=== PATIENT | male | born 1975 | race Caucasian/White ===

== ENCOUNTER 2025-10-01 15:33 | Outpatient (CLI) | payer MEDICARE, MEDICAID, SELFPAY ==
[2025-10-01 16:11] LABS: Hematocrit 29.6 % (42.0-52.0); Hemoglobin 9.5 g/dL (14.1-18.0); Immature Granulocytes % 0.5 %; Mean Corpuscular HGB Conc 32.1 g/dL (31.8-35.4); Mean Corpuscular Hemoglobin 31.7 pg (27.0-31.2); Mean Corpuscular Volume 98.7 fl (80-94); Nucleated Red Blood Cells % 0 %; Platelet Count 229 K/mm3 (142-424); Red Blood Count 3.00 M/mm3 (4.60-6.20); Red Cell Distribution Width-SD 47.3 fL; White Blood Count 6.3 K/mm3 (4.8-10.8)
[2025-10-01 16:44] LABS: Alanine Aminotransferase 12 U/L (12-78); Albumin Level 2.6 g/dl (3.5-5.0); Anion Gap 7.7 mEq/L (5-15); Aspartate Amino Transferase 23 U/L (17-59); Bilirubin,Total 0.5 mg/dl (0.2-1.3); Blood Urea Nitrogen 18 mg/dl (9-20); Calcium 8.1 mg/dl (8.4-10.2); Carbon Dioxide 30 mmol/L (22.0-30.0); Chloride 107 mmol/L (98-107); Creatinine,Serum 0.60 mg/dl (0.66-1.25); Estimated Glomerular Filt Rate 141 ml/min (>60); GFR (African American) 171 ML/MIN (>60); Glucose 119 mg/dl (74-100); Potassium 3.7 mmoL/L (3.5-5.1); Sodium 141 mmol/L (136-145); Total Protein,Serum 5.3 g/dl (6.3-8.2)
[2025-10-01 16:45] LABS: Albumin/Globulin Ratio 1.0 (1.1-1.8); Alkaline Phosphatase 87 U/L (38-126); Carbamazepine (Tegretol) 11.1 ug/ml (4.0-12.0); Globulin 2.7 g/dL (1.3-3.2)
[2025-10-01 16:50] LABS: NT Pro Brain Natriuretic Pep. 1740 pg/mL (0-125)
[2025-10-01 17:12] LABS: Thyroid Stimulating Hormone 2.26 uIU/mL (0.465-4.68)
[2025-10-01 20:01] LABS: Valproic Acid, (Depakene) 48.9 ug/ml (50-100)
== END 2025-10-01 23:59 | disposition home or self-care (01) ==
PROVIDERS: PCP Nurse Practitioner Family; Visit Provider Nurse Practitioner Family
DX: G40.301 Generalized idiopathic epilepsy and epileptic syndromes, not intractable, with status epilepticus (principal); Q85.1 Tuberous sclerosis; R60.1 Generalized edema
CPT/HCPCS: 80053; 80156; 80164; 83880; 84443; 85025

== ENCOUNTER 2025-10-04 21:06 | Observation (INO) | payer MEDICARE, MEDICAID, SELFPAY ==
[2025-10-04 21:05] VITALS: BP 120/77; PULSE 104; RESP 18; TEMP 38.2; O2SAT 98; BMI 19.8
--- NOTE | 2025-10-04 21:07 | XR_ITS ---
PROCEDURE INFORMATION: Exam: XR Chest Exam date and time: 10/04/2025 9:25 PM Age: 50 years old Clinical indication: Other: Hypotensive TECHNIQUE: Imaging protocol: Radiologic exam of the chest. Views: 1 view. COMPARISON: No relevant prior studies available. FINDINGS: Lungs: Unremarkable. No consolidation. Pleural spaces: Unremarkable. No pleural effusion. No pneumothorax. Heart/Mediastinum: Unremarkable. No cardiomegaly. Bones/joints: Unremarkable. IMPRESSION: No acute findings.
[2025-10-04 21:17] LABS: Hematocrit 23.2 % (42.0-52.0); Hemoglobin 7.8 g/dL (14.1-18.0); Immature Granulocytes % 0.3 %; Mean Corpuscular HGB Conc 33.6 g/dL (31.8-35.4); Mean Corpuscular Hemoglobin 32.4 pg (27.0-31.2); Mean Corpuscular Volume 96.3 fl (80-94); Nucleated Red Blood Cells % 0 %; Platelet Count 169 K/mm3 (142-424); Red Blood Count 2.41 M/mm3 (4.60-6.20); Red Cell Distribution Width-SD 46.4 fL; White Blood Count 3.5 K/mm3 (4.8-10.8)
[2025-10-04 21:25] LABS: Activated Partial Thrombo Time 31.1 seconds (22.8-30.6); INR 1.03 (0.9-1.1); Prothrombin Time 11.4 seconds (10.1-12.5)
--- NOTE | 2025-10-04 21:27 | PC.NURSE ---
patients brief changed at this time.
[2025-10-04 21:28] LABS: Alanine Aminotransferase 10 U/L (12-78); Albumin Level 2.4 g/dl (3.5-5.0); Albumin/Globulin Ratio 0.9 (1.1-1.8); Alkaline Phosphatase 96 U/L (38-126); Anion Gap 4.8 mEq/L (5-15); Aspartate Amino Transferase 21 U/L (17-59); Bilirubin,Total 0.4 mg/dl (0.2-1.3); Blood Urea Nitrogen 23 mg/dl (9-20); Calcium 7.7 mg/dl (8.4-10.2); Carbon Dioxide 31 mmol/L (22.0-30.0); Chloride 104 mmol/L (98-107); Creatinine Clearance Estimated 128 mL/min (50-200); Creatinine,Serum 0.60 mg/dl (0.66-1.25); Estimated Glomerular Filt Rate 141 ml/min (>60); GFR (African American) 171 ML/MIN (>60); Globulin 2.7 g/dL (1.3-3.2); Glucose 84 mg/dl (74-100); Potassium 3.8 mmoL/L (3.5-5.1); Sodium 136 mmol/L (136-145); Total Protein,Serum 5.1 g/dl (6.3-8.2)
[2025-10-04] MEDS: LACTATED RINGERS 1000ML 1,000 ML 999 ML IV (21:31)
[2025-10-04 21:34] LABS: Microscopic, Urine URINE MICROSCOPIC (MICROSCOPIC)
[2025-10-04 21:34] LABS: Creatine Kinase < 20 U/L (55-170)
[2025-10-04 21:38] LABS: Bilirubin,Urine Negative (Negative); Color,Urine YELLOW (Yellow); Glucose,Urine (UA) Negative (Negative); Ketones,Urine Negative (Negative); Leukocyte Esterase,Urine TRACE (Negative); PH,Urine 6.0 (5.0-8.5); Protein,Urine Negative (Negative); Specific Gravity, Urine 1.015 (1.005-1.030); Urobilinogen,Urine 0.2 EU/dl (0.2)
[2025-10-04 21:42] LABS: Coronavirus 19, PCR Not Detected (NotDetected); Influenza A, PCR Not Detected (NotDetected); Influenza B, PCR Not Detected (NotDetected)
[2025-10-04 21:54] LABS: Bacteria,Urine 1+ /lpf; Mucus,Urine 3+ /lpf; WBC,Urine 20-50 #/hpf (0-3)
--- NOTE | 2025-10-04 22:03 | ED_ITS ---
Discharge Plan Disposition Patient Disposition: Admitted Condition: Good Clinical Impressions Clinical Impression: Sepsis Discharge ED Provider: Vanessa Hernandez General Adult HPI General Chief complaint: Fever Stated complaint: hypotension fever Time Seen by Provider: 10/04/25 21:07 Mode of Arrival: EMS Source of Information: Patient and EMS Description of Symptoms (Recalled from ER Triage Doc. by RN): saba brought in by EMS from [facility] for abnormal vitals . patient noted to be tachycardic, hypotensive, adn febrile at 101.3 . report from care home revealed patient was swollen, had been on keflex for 3 days for cellulitis of right arm and supposed to start levaquin for pneumonia but hasnt yet . patinet is known to be nonverbal at [facility]. has a history of tubular sclerosis and epilepsy. History of Present Illness HPI narrative: Patient is a 50-year-old gentleman who has a history of tuberosclerosis, is nonverbal at baseline who came here to the emergency department with concerns for abnormal vital signs from his nursing facility. Patient was found to be tachycardic hypotensive and febrile and patient was sent here to be further evaluated. Of note, patient typically lives with his father but father recently fell and broke his hip and patient has since been in nursing facility. Patient has been on Keflex for cellulitis of the right upper extremity. Per report, patient was found to have a pneumonia and was post be started on Levaquin today but did not take any of his antibiotics. Patient does have a history of epilepsy with his known tuberosclerosis. Other history was unable to be obtained as patient is nonverbal. Related Data Allergies Allergy/AdvReac Type Severity Reaction Status Date / Time No Known Allergies Allergy Verified 10/04/25 21:26 [facility] Disclaimer: The information contained in this section may have been updated after the patient was seen, as this information can be updated by other users. Social History Smoking Status: Never smoker alcohol intake: never current occupational status: other Travel in the last 8 weeks?: None ROS Obtained: Yes All systems reviewed & no additional complaints except as documented and Yes Systems reviewed as appropriate & no additional complaints except as documented Physical Exam General General appearance: alert and in no apparent distress Head Head exam: atraumatic, normocephalic and normal inspection Eye Eye exam: Present normal appearance, PERRL and EOMI; Absent scleral icterus ENT ENT exam: Present normal exam and normal external ear exam Neck Neck exam: Present normal inspection and full ROM Chest Chest inspection: Present normal inspection and symmetric chest wall rise Respiratory Respiratory exam: Present normal lung sounds bilaterally; Absent respiratory distress or wheezes Cardiovascular Cardiovascular exam: Present regular rate, normal rhythm and normal heart sounds Abdominal Exam Abdominal exam: Present soft and distention; Absent tenderness, guarding or rebound Extremities Exam Extremities exam: Present normal inspection and full ROM Back Exam Back exam: Present normal inspection and full ROM Neurological Exam Neurological exam: Present alert and oriented X3 Psychiatric Psychiatric exam: Present normal affect and normal mood Skin Skin exam: Present warm, dry and other (dependent edema of the bilateral lower extremities, superficial abrasions and scratches to the RUE) Medical Decision Making Medical Records Medical records reviewed: Yes I reviewed the patient's medical records. Screening: Per USPSTF and CDC recommendations, given the prevalence of disease in our region, it is our hospital?s policy to screen for HIV and viral Hepatitis for all patients aged 18 and over and those with ongoing risk factors. Madi Inquiry Pt receiving controlled substance: No Vital Signs: 10/04/25 21:05 10/04/25 21:13 10/04/25 23:28 Temperature 100.7 F H 98.5 F Temperature Source Oral Oral Pulse Rate 82 Pulse Rate [Right Radial] 104 H Respiratory Rate 18 20 Blood Pressure 175/72 H Blood Pressure [Right Arm] 120/77 Blood Pressure Mean [Right Arm] 91 Blood Pressure Source [Right Arm] Automatic Cuff Blood Pressure Position [Right Arm] Sitting 02 Sat by Pulse Oximetry 98 Oxygen Delivery Method Room Air Room Air Lab Data Lab results reviewed: Yes I reviewed the patient's lab results. Lab Results 10/04/25 20:48: WBC 3.5 L, RBC 2.41 L, Hgb 7.8 L, Hct 23.2 L, MCV 96.3 H, MCH 32.4 H, MCHC 33.6, RDW 13.2, Plt Count 169 D, MPV 9.8, Neut % (Auto) 51.4, Lymph % (Auto) 36.7, Sullivan % (Auto) 9.9 H, Eos % (Auto) 1.1, Baso % (Auto) 0.6, Neut # (Auto) 1.8, Lymph # (Auto) 1.3, Sullivan # (Auto) 0.4, Eos # (Auto) 0.0, Baso # (Auto) 0.0, PT 11.4, INR 1.03, APTT 31.1 H, Sodium 136, Potassium 3.8, Chloride 104, Carbon Dioxide 31 H, Anion Gap 4.8 L, BUN 23 H, Creatinine 0.60 L, Estimated Creat Clear 128, Estimated GFR 141, Est GFR ( Amer) 171, Glucose 84, Lactate 1.2, Calcium 7.7 L, Total Bilirubin 0.4, AST 21, ALT 10 L, Alkaline Phosphatase 96, Total Creatine Kinase < 20 L, Total Protein 5.1 L, A lbumin 2.4 L, Globulin 2.7, Albumin/Globulin Ratio 0.9 L 10/04/25 21:28: Urine Color Yellow, Urine Appearance Clear, Urine pH 6.0, Ur Specific [place] 1.015, Urine Protein Negative, Urine Glucose (UA) Negative, Urine Ketones Negative, Urine Blood Negative, Urine Nitrate Negative, Urine Bilirubin Negative, Urine Urobilinogen 0.2, Ur Leukocyte Esterase Trace, Urine RBC 5-10, Urine WBC 20-50, Ur Squamous Epith Cells 10-20, Urine Bacteria 1+, Urine Mucus 3+ 10/04/25 21:36: SARS-CoV-2 (PCR) Not detected, Influenza Type A (PCR) Not detected, Influenza Type B (PCR) Not detected, RSV (PCR) Not detected, Rhinovirus (PCR) Not detected 10/04/25 20:48 10/04/25 20:48 Orders (Tests/Meds): ED MEDICATIONS Generic Name Dose Route Start Last Admin Trade Name Freq PRN Reason Stop Dose Admin Acetaminophen 650 mg 10/04/25 23:36 Acetaminophen 325mg Tab PO 11/03/25 23:35 Q4HP PRN Fever or Mild Pain (1-3) Enoxaparin Sodium 40 mg 10/05/25 09:00 Enoxaparin 40mg/0.4ml Syringe SUBCUT 11/04/25 08:59 DAILY HORACIO Sodium Chloride 1,000 mls @ 50 mls/hr 10/04/25 23:45 Sod Chlor 0.9% 1000ml Bag IV 11/03/25 23:44 .Q20H HORACIO Cefepime HCl 2 gm/ Sodium 100 mls @ 200 mls/hr 10/05/25 06:00 Chloride IV 10/15/25 05:59 Q8H HORACIO Pantoprazole Sodium 40 mg 10/05/25 21:00 Pantoprazole 40mg Tablet PO 11/04/25 20:59 HS HORACIO Sodium Chloride 10 ml 10/04/25 23:36 Sodium Chloride 0.9% 10ml Flush Syringe IV 11/03/25 23:35 NEEDED PRN Maintain IV Site Discontinued Medications Generic Name Dose Route Start Last Admin Trade Name Frandy PRN Reason Stop Dose Admin Acetaminophen 1,000 mg 10/04/25 22:28 10/04/25 22:46 Acetaminophen 1,000mg/100ml Vial IV 10/04/25 22:29 1,000 mg ONCE ONE Administration Lactated Ringer's 1,000 mls @ 999 mls/hr 10/04/25 21:07 10/04/25 23:08 Lactated Ringer's 1000 Ml Bag IV 10/04/25 22:07 Infused .Q1H1M ONE Infusion Cefepime HCl 2 gm/ Sodium 100 mls @ 200 mls/hr 10/04/25 22:30 10/04/25 23:17 Chloride IV 10/04/25 22:59 Infused ONCE ONE Infusion ORDERS Category Date Time Status CXR --portable [XR chest portable] Stat Exams 10/04/25 21:07 Completed Activated Partial Thrombo Time Stat Lab 10/04/25 20:48 Completed Complete Blood Count Auto Diff Stat Lab 10/04/25 20:48 Completed Comprehensive Metabolic Panel Stat Lab 10/04/25 20:48 Completed Creatine Kinase Stat Lab 10/04/25 20:48 Completed Lactic Acid Stat Lab 10/04/25 20:48 Completed Mini Respiratory Panel Stat Lab 10/04/25 21:36 Completed Mini Respiratory Panel Stat Lab 10/04/25 22:27 Ordered Prothrombin Time INR Stat Lab 10/04/25 20:48 Completed UA [Urinalysis and Microscopic] Stat Lab 10/04/25 21:28 Completed Blood Culture Stat Micro 10/04/25 21:36 Received Urine Culture Stat Micro 10/04/25 21:28 Received Urine Culture(cathed specimen) Stat Micro 10/04/25 21:28 Received Medical Decision Narrative: Patient is a 50-year-old male with a past medical history of tuberosclerosis who presents to the emergency department with concern for abnormal vital signs from his nursing facility. Per nursing facility, patient was tachycardic, hypotensive and febrile. Patient is currently on Keflex for a cellulitis infection. On arrival, patient was tachycardic normotensive but febrile. Vital signs were otherwise unremarkable. Differential includes but not limited to: Urinary tract infection, worsening cellulitis, sepsis, pneumonia, amongst others. Patient's labs were reviewed and interpreted by myself: CBC showed no leukocytosis, hemoglobin was mildly downtrending at 7.8. INR normal, APTT 31.1. CMP unremarkable. UA with bacteria, white blood cells, trace leuk esterase. Chest x-ray was reviewed and interpreted by myself and showed no acute focal consolidation, pneumothorax, pleural effusion or other acute cardiopulmonary process. At this time, given patient was tachycardic, with a known diagnosis of cellulitis and febrile with a previous low blood pressure, patient was treated empirically with IV cefepime. Patient did have evidence of a urinary tract infection on UA. I discussed with hospitalist and patient was ultimately admitted to their service for further evaluation workup. Critical Care Critical Care Time Critical Care Time: No
[2025-10-04] MEDS: ACETAMINOPHEN 1,000MG/100ML VIAL 1000 MG IV (22:46)
[2025-10-04] MEDS: CEFEPIME HCL 2 GM in 0.9 % SODIUM CHLORIDE 100 ML IV (22:46)
--- NOTE | 2025-10-04 23:27 | PC.NURSE ---
report called to SUNNI lara
[2025-10-04 23:28] VITALS: BP 175/72; PULSE 82; RESP 20; TEMP 36.9; O2SAT 95
--- NOTE | 2025-10-04 23:38 | PC.NURSE ---
Patient arrived to floor via stretcher from ED at 23:36.
--- NOTE | 2025-10-04 23:42 | P.HP_ITS ---
<Statement entered by Hernando Kowalski MD - 10/05/25 12:11> Agree with the plan of care as outlined in [facility] below. History of Present Illness *Admission Date: 10/04/25 *Reason for visit:: Fever *History of present illness: Raj Hsu is a 50-year-old male with past medical history significant for tuberosclerosis, nonverbal at baseline. Presents from his nursing facility due to abnormal vital sign findings. Reported to be febrile, tachycardic and hypotensive. Due to nonverbal state the patient history provided per staff and chart review. Currently being treated for cellulitis of his right upper extremity. Patient was placed on Keflex. He was also reported to have pneumonia with plan of starting Levaquin today but did not take his antibiotics per nursing facility. ED workup revealing downtrending hemoglobin 7.8, UA with bacteria, white blood cells and trace leukocyte esterase. Received IV fluids and IV antibiotic cefepime with concern of urinary tract infection with concern of possible worsening cellulitis right upper extremity. Patient will be admitted for further evaluation and treatment. Initial ED workup included laboratory studies and imaging. Significant laboratory findings included hemoglobin 7.8, UA with bacteria, WBC cells present and trace leukocyte esterase. Imaging studies reviewed personally which included chest x-ray without any acute finding. Patient assessed at bedside and is hemodynamically stable, no acute distress at this time. [facility] Disclaimer: The information contained in this section may have been updated after the patient was seen, as this information can be updated by other users. Medical History (Updated 10/05/25 @ 06:44 by Danna Vasquez APRN) Idiopathic absence epilepsy Edema Tuberous sclerosis Epilepsy Social History Smoking Status: Never smoker alcohol intake: never current occupational status: disabled Travel in the last 8 weeks?: None Have you lived/traveled outside [place] in past 30 days?: No Contact w/someone who lives/traveled outside [place] past 30 days?: No Exposure to someone with infectious disease in past 14 days?: No Do you have a fever (greater than 100.4 F or 38 C)?: No Have you tested positive for COVID-19?: No Exposed to someone with COVID-19 in past 14 days?: No Do you have a sore throat?: No Do you have a cough?: No Do you have any weakness?: No Do you have any diarrhea?: No Are you experiencing any unusual bleeding?: No Do you have any muscle aches/pain?: No Do you have any abdominal pain?: No Are you experiencing loss of taste or smell?: No Review of Systems Review of Systems Review of systems:: unable to obtain Review of systems (narrative): Patient nonverbal Constitutional Constitutional: Reports system reviewed and no additional complaints, except as documented and Reports as per HPI Eyes Eyes: Reports system reviewed and no additional complaints, except as documented and Reports as per HPI ENT Ears, Nose, Mouth, and Throat: Reports system reviewed and no additional complaints, except as documented and Reports as per HPI *Cardiovascular Cardiovascular: Reports system reviewed and no additional complaints, except as documented and Reports as per HPI *Respiratory Respiratory: Reports system reviewed and no additional complaints, except as documented and Reports as per HPI *Gastrointestinal Gastrointestinal: Reports system reviewed and no additional complaints, except as documented and Reports as per HPI *Genitourinary Genitourinary: Reports system reviewed and no additional complaints, except as documented and Reports as per HPI *Musculoskeletal Musculoskeletal: Reports system reviewed and no additional complaints, except as documented and Reports as per HPI Integumentary/Breasts Skin/Breast: Reports system reviewed and no additional complaints, except as documented and Reports as per HPI *Neurologic Neurologic: Reports system reviewed and no additional complaints, except as documented and Reports as per HPI Psychiatric Psychiatric: Reports system reviewed and no additional complaints, except as documented and Reports as per HPI Endocrine Endocrine: Reports system reviewed and no additional complaints, except as documented and Reports as per HPI Hematologic/Lymphatic Hematologic/Lymphatic: Reports system reviewed and no additional complaints, except as documented and Reports as per HPI Allergic/Immunologic Allergic/Immunologic: Reports system reviewed and no additional complaints, except as documented and Reports as per HPI Meds Home Medications and Allergies Home Medications ?Medication ?Instructions ?Recorded ?Confirmed ?Type amino ac-protein hydro-whey 30 ea PO BID 10/05/2509/17 History protein 10 gram-100 kcal/30 mL oral liquid ([employer]) carbamazepine 200 mg tablet 600 mg PO DIRECTED 09/1710/05/25 History carbamazepine 200 mg tablet 700 mg PO BID 10/05/25 History cephalexin 500 mg capsule 500 mg PO TID 10/05/2510/05 History cholecalciferol (vitamin D3) 50 50 mcg PO DAILY 10/05/25 History mcg (2,000 unit) capsule divalproex 500 mg tablet,delayed 500 mg PO BID 5 10/05/25 History release famotidine 20 mg tablet 20 mg PO BID 10/05/25 History furosemide 20 mg tablet 20 mg PO DAILY 10/05/2509/17 History guaifenesin 600 mg tablet, 600 mg PO BID 10/05/2509/17 History extended release 12 hr (Mucinex) levofloxacin 500 mg tablet 500 mg PO DAILY 10/05/25 History multivitamin 1 tab PO DAILY 10/05/2509/17 History tamsulosin 0.4 mg capsule 0.4 mg PO DAILY 10/05/25 History New Prescriptions to Start Prescriptions: Allergies Allergy/AdvReac Type Severity Reaction Status Date / Time No Known Allergies Allergy Verified 10/04/25 21:26 Exam Data for Last 24 hours Vital signs and Labs for Last 24 Hours: Temp Pulse Resp BP Pulse Ox O2 Del Method 98.5 F 82 20 175/72 H 98 Room Air 10/04/25 23:28 10/04/25 23:28 10/04/25 23:28 10/04/25 23:28 10/04/25 21:05 10/04/25 23:28 Laboratory Results - last 24 hr 10/04/25 20:48: WBC 3.5 L, RBC 2.41 L, Hgb 7.8 L, Hct 23.2 L, MCV 96.3 H, MCH 32.4 H, MCHC 33.6, RDW 13.2, Plt Count 169 D, MPV 9.8, Neut % (Auto) 51.4, Lymph % (Auto) 36.7, [place] % (Auto) 9.9 H, Eos % (Auto) 1.1, Baso % (Auto) 0.6, Neut # (Auto) 1.8, Lymph # (Auto) 1.3, [place] # (Auto) 0.4, Eos # (Auto) 0.0, Baso # (Auto) 0.0, PT 11.4, INR 1.03, APTT 31.1 H, Sodium 136, Potassium 3.8, Chloride 104, Carbon Dioxide 31 H, Anion Gap 4.8 L, BUN 23 H, Creatinine 0.60 L, Estimated Creat Clear 128, Estimated GFR 141, Est GFR ( Amer) 171, Glucose 84, Lactate 1.2, Calcium 7.7 L, Total Bilirubin 0.4, AST 21, ALT 10 L, Alkaline Phosphatase 96, Total Creatine Kinase < 20 L, Total Protein 5.1 L, Albumin 2.4 L, Globulin 2.7, Albumin/Globulin Ratio 0.9 L 10/04/25 21:28: Urine Color Yellow, Urine Appearance Clear, Urine pH 6.0, Ur Specific [place] 1.015, Urine Protein Negative, Urine Glucose (UA) Negative, Urine Ketones Negative, Urine Blood Negative, Urine Nitrate Negative, Urine Bilirubin Negative, Urine Urobilinogen 0.2, Ur Leukocyte Esterase Trace, Urine RBC 5-10, Urine WBC 20-50, Ur Squamous Epith Cells 10-20, Urine Bacteria 1+, Urine Mucus 3+ 10/04/25 21:36: SARS-CoV-2 (PCR) Not detected, Influenza Type A (PCR) Not detected, Influenza Type B (PCR) Not detected, RSV (PCR) Not detected, Rhinovirus (PCR) Not detected I & O for Last 24 hours: Intake & Output 10/01/25 10/02/25 10/03/25 10/04/25 23:59 23:59 23:59 23:59 Intake Total 1100 / 1100 Balance 1100 / 1100 Weight 62.596 kg Constitutional Constitutional: no acute distress *Routine HEENT Exam Head: Present normocephalic and atraumatic Eye: Present EOMI, PERRL and normal accommodation ENT: Present mucous membranes moist *Routine Neck Exam Neck: Present supple and full ROM *Routine Respiratory Exam Respiratory: Present normal respiratory effort *Routine Cardiovascular Exam Cardiovascular: Present RRR, Normal S1 and Normal S2 *Routine Abdominal Exam Abdominal: Present soft and normoactive bowel sounds *Routine Rectal Exam Rectal:: deferred *Routine Genitalia Exam Genitalia:: deferred *Routine Extremities Exam Extremities: Present pulses intact and normal capillary refill Comments: Lower extremity contraction *Routine Skin Exam Skin: Present intact *Routine Neurological Exam Neurological: Present alert Comments: Nonverbal baseline, history of tuberosclerosis Assessment and Plan *Assessment and plan (1) Right arm cellulitis: Status: Acute Category: Medical Code(s): L03.113 - Cellulitis of right upper limb (2) Sepsis: Status: Acute Qualifiers: Sepsis acute organ dysfunction status: unspecified Sepsis type: sepsis due to unspecified organism Qualified Code(s): A41.9 - Sepsis, unspecified organism Category: Medical Code(s): A41.9 - Sepsis, unspecified organism (3) Febrile illness, acute: Status: Acute Category: Medical Code(s): R50.9 - Fever, unspecified (4) Tuberous sclerosis: Status: Acute Category: Medical Code(s): Q85.1 - Tuberous sclerosis (5) Acute anemia: Status: Acute Category: Medical Code(s): D64.9 - Anemia, unspecified Plan Assessment/plan: This patient's case was discussed with the emergency department and agree with admission. 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 Presents due to abnormal vital signs within his nursing facility. It was noted patient was febrile, tachycardic and hypotensive. Currently being treated for right upper extremity cellulitis with Keflex. There was also concern of pneumonia. Patient reportedly did not take antibiotics today at his nursing facility. ED workup revealed possible urinary tract infection. Chest x-ray without acute findings. Patient admitted for evaluation and treatment of possible worsening of her right arm cellulitis and urinary tract infection with noted tachycardia, febrile state. Monitor and trend labs. 1. Sepsis/right arm cellulitis: Right upper arm cellulitis treated outpatient with Keflex. Concern of possible worsening underlying infection. On presentation right upper extremity appears to be mild in nature. Concern due to notable febrile state, tachycardia and reported hypotensive state prior to his arrival. There was also concern of possible underlying pneumonia and there was plan to start Levaquin today. Chest x-ray as noted above without evidence of pneumonia. RPP obtained negative. Received IV fluids ED, blood cultures obtained/pending IV cefepime initiated within the emergency department. 2. Tuberosclerosis: Nonverbal, patient currently resides at the nursing facility. Typically resides at home with his dad as a caregiver, unfortunately his father recently fell and broke his head and patient has since been within the nursing facility since incident. 3. Acute anemia: Hemoglobin 7.8 per ED workup-significant change from a few days prior on 10/01 w/ hgb 9.5. No obvious source of active bleeding. Will continue to monitor trend with morning labs. Iron studies with morning labs. If hemoglobin drops below 7, type and screen with plan to transfuse packed red blood cell. Full code DVT prophylaxis: Lovenox Regular diet
[2025-10-05] VITALS: BP 140/88; PULSE 86; RESP 16; TEMP 37.7; O2SAT 98; BMI 17.5
--- NOTE | 2025-10-05 00:24 | PC.WOUNDNOTE ---
open area right lower extremity
--- NOTE | 2025-10-05 00:24 | PC.WOUNDNOTE ---
small area to sacrum
--- NOTE | 2025-10-05 00:25 | PC.WOUNDNOTE ---
left lower extremity
--- NOTE | 2025-10-05 00:26 | PC.WOUNDNOTE ---
right lower extremity
--- NOTE | 2025-10-05 00:26 | PC.WOUNDNOTE ---
right upper extremity
[2025-10-05] MEDS: 0.9 % SODIUM CHLORIDE 1000ML 1,000 ML 50 ML IV (00:33)
--- NOTE | 2025-10-05 03:57 | PC.NURSE ---
Patient is alert to name. Nonverbal at baseline. Q2 turn. Heels floated. IV abx and fluids given per dec. Bed alarm on. Seizure pads in place. Call light in reach.
[2025-10-05 04:00] VITALS: BP 120/68; PULSE 84; RESP 16; TEMP 36.9; O2SAT 95; BMI 17.5
[2025-10-05] MEDS: CEFEPIME HCL 2 GM in 0.9 % SODIUM CHLORIDE 100 ML IV ×3 (05:03→22:04)
[2025-10-05 06:22] LABS: Hematocrit 22.0 % (42.0-52.0); Hemoglobin 7.1 g/dL (14.1-18.0); Immature Granulocytes % 0.4 %; Mean Corpuscular HGB Conc 32.3 g/dL (31.8-35.4); Mean Corpuscular Hemoglobin 31.4 pg (27.0-31.2); Mean Corpuscular Volume 97.3 fl (80-94); Nucleated Red Blood Cells % 0 %; Platelet Count 133 K/mm3 (142-424); Red Blood Count 2.26 M/mm3 (4.60-6.20); Red Cell Distribution Width-SD 46.9 fL; White Blood Count 2.7 K/mm3 (4.8-10.8)
[2025-10-05 06:30] LABS: Albumin Level 2.2 g/dl (3.5-5.0); Chloride 105 mmol/L (98-107); Potassium 3.7 mmoL/L (3.5-5.1); Sodium 138 mmol/L (136-145)
[2025-10-05 06:32] LABS: Blood Urea Nitrogen 22 mg/dl (9-20); Creatinine Clearance Estimated 136 mL/min (50-200); Creatinine,Serum 0.50 mg/dl (0.66-1.25); Estimated Glomerular Filt Rate 175 ml/min (>60); GFR (African American) 211 ML/MIN (>60)
[2025-10-05 06:33] LABS: Alanine Aminotransferase 7 U/L (12-78); Albumin/Globulin Ratio 0.9 (1.1-1.8); Alkaline Phosphatase 81 U/L (38-126); Anion Gap 7.7 mEq/L (5-15); Aspartate Amino Transferase 19 U/L (17-59); Bilirubin,Total 0.3 mg/dl (0.2-1.3); Calcium 7.2 mg/dl (8.4-10.2); Carbon Dioxide 29 mmol/L (22.0-30.0); Globulin 2.4 g/dL (1.3-3.2); Glucose 75 mg/dl (74-100); Total Protein,Serum 4.6 g/dl (6.3-8.2)
--- NOTE | 2025-10-05 07:50 | HMH.PHAINT1 ---
Pharmacy Intervention Comments: HOME MEDICATION LIST VERIFIED USING LIST FROM JAIL
--- NOTE | 2025-10-05 07:55 | DIET.NUTRFU ---
spoke to nursing staff at [facility] he was tolerating as regular diet, good intake no supplements in place. He has only been at [facility] for 2 weeks- had no weight hx on file. Skin intake but at increased risk d/t low BMI and possible decline in meal intake
[2025-10-05 08:00] VITALS: BP 143/93; PULSE 87; RESP 17; TEMP 36.4; O2SAT 95
--- NOTE | 2025-10-05 08:16 | SW/DCPLANNER ---
Patient resides at [facility] half-way ([facility])
[2025-10-05 08:39] LABS: Adenovirus,PCR Not Detected (NotDetected); Chlamydophila Pneumoniae, PCR Not Detected (NotDetected); Coronavirus 19, PCR Not Detected (NotDetected); Coronovirus HKU1,PCR Not Detected (NotDetected); Influenza A, PCR Not Detected (NotDetected); Influenza AH1, 2009 Not Detected (NotDetected); Influenza AH1, PCR Not Detected (NotDetected); Influenza AH3,PCR Not Detected (NotDetected); Influenza B, PCR Not Detected (NotDetected); Mycoplasma Pneumoniae, PCR Not Detected (NotDetected); Parainfluenza 1, PCR Not Detected (NotDetected); Parainfluenza 2, PCR Not Detected (NotDetected); Parainfluenza 3, PCR Not Detected (NotDetected); Parainfluenza 4, PCR Not Detected (NotDetected)
--- NOTE | 2025-10-05 08:40 | HMH.PTEV ---
Physical Therapy Evaluation Rehab PT IP Evaluation Start: 10/05/25 00:13 Freq: ONCE Status: Active Protocol: Document 10/05/25 08:37 MARY (Rec: 10/05/25 08:40 MARY [id number]) Subjective/History History History Per H&P: Raj Hsu is a 50-year-old male with past medical history significant for tuberosclerosis, nonverbal at baseline. Presents from his nursing facility due to abnormal vital sign findings. Reported to be febrile, tachycardic and hypotensive. Due to nonverbal state the patient history provided per staff and chart review. Currently being treated for cellulitis of his right upper extremity. Patient was placed on Keflex. He was also reported to have pneumonia with plan of starting Levaquin today but did not take his antibiotics per nursing facility. ED workup revealing downtrending hemoglobin 7.8, UA with bacteria, white blood cells and trace leukocyte esterase. Received IV fluids and IV antibiotic cefepime with concern of urinary tract infection with concern of possible worsening cellulitis right upper extremity. Patient will be admitted for further evaluation and treatment. Initial ED workup included laboratory studies and imaging. Significant laboratory findings included hemoglobin 7.8, UA with bacteria, WBC cells present and trace leukocyte esterase. Imaging studies reviewed personally which included chest x-ray without any acute finding. Patient assessed at bedside and is hemodynamically stable, no acute distress at this time. Subjective Subjective Pt is non-verbal. Per nursing staff, pt is total care at baseline. Pt not able to follow simple commands or engage with PT during history questions. Mobility assessment limited as pt was resistive to mobility. [facility] How much help from another person do you currently need... Turning from your A lot back to your side while in a flat bed without using bedrails? Moving from lying on Total back to sitting on the side of a flat bed without using bedrails? Moving to and from a Total bed to a chair ( including a wheelchair)? Standing up from a Total chair using your arms? (e.g., wheelchair, bedside chair) Walking in hospital Total room? Climbing 3-5 steps Total with a railing? Mobility Score 7 Mobility Level [facility] Mobility 2 Bed activities/dependent transfer Mobility Calculator Rehab PT IP Eval Objective Appearance Patient Behavior Resistive to Care,Patient Baseline Difficulty following severe instructions Ambulation Patient Able to No Ambulate Balance Ability to Arise Unable Rehab PT IP prob,goals,plan Problems Date of Evaluation: 10/05/25 Rehab Potential Rehab Potential Innapropriate for Skilled Therapy Discharge Plan PT Discharge Plan Pt appears to be at his baseline/ total A with functional mobility. Pt not appropriate for skilled PT at this time d/t baseline mobility. Eval Complexity Eval Charge Codes 89468 - Moderate Complexity PHYSICIAN CERTIFICATION: I certify the specified therapy services for Raj Hsu are required, authorized, and reviewed every 30 days.
[2025-10-05 09:06] VITALS: BMI 17.5
[2025-10-05] MEDS: DIVALPROEX 500MG (Delayed-Release) TABLET 500 MG PO ×2 (09:15→20:22)
[2025-10-05] MEDS: FAMOTIDINE 20MG TABLET 20 MG PO ×2 (09:15→20:22)
[2025-10-05] MEDS: guaiFENesin 600 MG TAB.ER.12H PO ×2 (09:15→20:22)
[2025-10-05] MEDS: CHOLECALCIFEROL 1,000 UNITS (25MCG) TABLET 50 MCG PO (09:15)
[2025-10-05 09:50] LABS: Iron 67 ug/dL (49-181)
--- NOTE | 2025-10-05 09:55 | HMH.OTEV ---
OT Evaluation Rehab OT IP Evaluation Start: 10/05/25 00:13 Freq: ONCE Status: Active Protocol: Document 10/05/25 09:53 [facility] (Rec: 10/05/25 09:55 [facility] [id number]) Rehab OT IP Assessment Subjective History Per H&P: Raj Hsu is a 50-year-old male with past medical history significant for tuberosclerosis, nonverbal at baseline. Presents from his nursing facility due to abnormal vital sign findings. Reported to be febrile, tachycardic and hypotensive. Due to nonverbal state the patient history provided per staff and chart review. Currently being treated for cellulitis of his right upper extremity. Patient was placed on Keflex. He was also reported to have pneumonia with plan of starting Levaquin today but did not take his antibiotics per nursing facility. ED workup revealing downtrending hemoglobin 7.8, UA with bacteria, white blood cells and trace leukocyte esterase. Received IV fluids and IV antibiotic cefepime with concern of urinary tract infection with concern of possible worsening cellulitis right upper extremity. Patient will be admitted for further evaluation and treatment. Initial ED workup included laboratory studies and imaging. Significant laboratory findings included hemoglobin 7.8, UA with bacteria, WBC cells present and trace leukocyte esterase. Imaging studies reviewed personally which included chest x-ray without any acute finding. Patient assessed at bedside and is hemodynamically stable, no acute distress at this time. Subjective Pt is non-verbal. Per nursing staff, pt is total care at baseline. Pt not able to follow simple commands or engage with OT during history questions. Rehab OT IP prob,goals,plan Problems Date of Evaluation: 10/05/25 Rehab Potential Rehab Potential Innapropriate for Skilled Therapy Discharge Plan OT Discharge Plan Pt appears to be at his baseline/ total A with functional mobility and ADL assistance. Pt not appropriate for skilled OT at this time. Eval Complexity Eval Charge Codes 97384 - Moderate Complexity PHYSICIAN CERTIFICATION: I certify the specified therapy services for Raj Hsu are required, authorized, and reviewed every 30 days.
[2025-10-05 09:58] LABS: Vitamin B12 779 pg/mL (239-931)
[2025-10-05 10:01] LABS: Total Iron Binding Capacity 139 ug/dL (261-462)
--- NOTE | 2025-10-05 10:05 | HMH.PHAAMS2 ---
- Antimicrobial Stewardship Review culture & sensitivity review Stewardship interventions: culture & sensitivity review, reviewed - no change Comments: BLOOD CX PENDING, URINE CX PENDING, ON CEFEPIME FOR SEPSIS/CELLULITIS, WBC 2.7 K/mm3, TMAX 100.7
[2025-10-05 10:47] LABS: Ferritin 81.1 ng/ml (17.9-464)
[2025-10-05 10:50] LABS: Occult Blood,Stool Negative (Negative)
[2025-10-05 12:00] VITALS: BP 134/83; PULSE 88; RESP 16; TEMP 37.1; O2SAT 91
[2025-10-05 16:00] VITALS: BP 141/78; PULSE 95; RESP 16; TEMP 37.2; O2SAT 98
[2025-10-05] MEDS: MULTIVITAMIN TABLET 1 EACH PO (16:40)
--- NOTE | 2025-10-05 16:45 | PC.NURSE ---
Addendum entered by Jasmyn Christian RN 10/05/25 18:37: CODE STATUS ADDRESSED WITH PT'S BROTHER AND COUSIN AT BEDSIDE. BROTHER STATED HE WOULD GO HOME AND DISCUSS IT WITH HIS AND PT'S MOTHER AND WOULD CALL THE HOSPITAL TO LET US KNOW WHAT DECISION WAS MADE. Original Note: PT IS RESTING IN BED. ALERT TO SELF ONLY. NONVERBAL. PT WILL GIVE EYE CONTACT HOWEVER WILL NOT FOLLOW COMMANDS. PT WILL MOAN/GRIMACE WHEN BEING REPOSITIONED IN BED. EATING AND DRINKING WELL. PT HAS TOLERATED REGULAR DIET AND TAKES PILLS WITH APPLESAUCE. NO ISSUES WITH SWALLOWING. PT GRINDS TEETH CONSTANTLY. VERY POOR DENTITION. LUNG SOUNDS CLEAR. ABDOMEN SOFT/NON TENDER WITH ACTIVE BOWEL SOUNDS. 2-3+ PITTING EDEMA NOTED TO BLE. SCATTERED ABRASIONS NOTED TO BLE. SMALL OPEN AREA NOTED TO COCCYX. SWELLING NOTED TO RUE. WILL CONTINUE TO MONITOR.
--- NOTE | 2025-10-05 18:30 | EXP.PN ---
Subjective *Date: 10/05/25 *Time: 18:30 Interval history: Unfortunately, patient's tubular sclerosis with cognitive impairment impairs ability to perform a good interview. No acute signs of distress. Seems to be eating reasonably well with assistance. Continue antibiotics for UTI, cellulitis. Follow-up WBC in the morning. Follow-up repeat H&H. Exam Data for Last 24 hours Vital signs and Labs for Last 24 Hours: Temp Pulse Resp BP Pulse Ox O2 Del Method 99.0 F 95 H 16 141/78 H 98 Room Air 10/05/25 16:00 10/05/25 16:00 10/05/25 16:00 10/05/25 16:00 10/05/25 16:00 10/05/25 18:14 Laboratory Results - last 24 hr 10/04/25 20:48: WBC 3.5 L, RBC 2.41 L, Hgb 7.8 L, Hct 23.2 L, MCV 96.3 H, MCH 32.4 H, MCHC 33.6, RDW 13.2, Plt Count 169 D, MPV 9.8, Neut % (Auto) 51.4, Lymph % (Auto) 36.7, [place] % (Auto) 9.9 H, Eos % (Auto) 1.1, Baso % (Auto) 0.6, Neut # (Auto) 1.8, Lymph # (Auto) 1.3, [place] # (Auto) 0.4, Eos # (Auto) 0.0, Baso # (Auto) 0.0, PT 11.4, INR 1.03, APTT 31.1 H, Sodium 136, Potassium 3.8, Chloride 104, Carbon Dioxide 31 H, Anion Gap 4.8 L, BUN 23 H, Creatinine 0.60 L, Estimated Creat Clear 128, Estimated GFR 141, Est GFR ( Amer) 171, Glucose 84, Lactate 1.2, Calcium 7.7 L, Total Bilirubin 0.4, AST 21, ALT 10 L, Alkaline Phosphatase 96, Total Creatine Kinase < 20 L, Total Protein 5.1 L, Albumin 2.4 L, Globulin 2.7, Albumin/Globulin Ratio 0.9 L 10/04/25 21:28: Urine Color Yellow, Urine Appearance Clear, Urine pH 6.0, Ur Specific [place] 1.015, Urine Protein Negative, Urine Glucose (UA) Negative, Urine Ketones Negative, Urine Blood Negative, Urine Nitrate Negative, Urine Bilirubin Negative, Urine Urobilinogen 0.2, Ur Leukocyte Esterase Trace, Urine RBC 5-10, Urine WBC 20-50, Ur Squamous Epith Cells 10-20, Urine Bacteria 1+, Urine Mucus 3+ 10/04/25 21:36: SARS-CoV-2 (PCR) Not detected, Influenza Type A (PCR) Not detected, Influenza Type B (PCR) Not detected, RSV (PCR) Not detected, Rhinovirus (PCR) Not detected 10/05/25 05:32: WBC 2.7 L, RBC 2.26 L, Hgb 7.1 L, Hct 22.0 L, MCV 97.3 H, MCH 31.4 H, MCHC 32.3, RDW 13.2, Plt Count 133 L, MPV 9.7, Neut % (Auto) 50.4, Lymph % (Auto) 35.2, [place] % (Auto) 11.1 H, Eos % (Auto) 2.2, Baso % (Auto) 0.7, Neut # (Auto) 1.4 L, Lymph # (Auto) 1.0, Pitt # (Auto) 0.3, Eos # (Auto) 0.1, Baso # (Auto) 0.0, Sodium 138, Potassium 3.7, Chloride 105, Carbon Dioxide 29, Anion Gap 7.7, BUN 22 H, Creatinine 0.50 L, Estimated Creat Clear 136, Estimated GFR 175, Est GFR ( Amer) 211 D, Glucose 75, Calcium 7.2 L, Ferritin 81.1, Total Bilirubin 0.3, AST 19, ALT 7 L D, Alkaline Phosphatase 81, Total Protein 4.6 L, Albumin 2.2 L, Globulin 2.4, Albumin/Globulin Ratio 0.9 L, Vitamin B12 779 10/05/25 08:05: Iron 67, TIBC 139 L, Iron Saturation 48.67838 10/05/25 08:30: Chlamy pneumoniae PCR Not detected, Adenovirus (PCR) Not detected, B. pertussis DNA (PCR) Not detected, Coronavirus OC43 (PCR) Not detected, Coronavirus HKU1 (PCR) Not detected, Coronavirus 229E (PCR) Not detected, SARS-CoV-2 (PCR) Not detected, Coronavirus NL63 (PCR) Not detected, Human Metapneumovir PCR Not detected, Influenza A (H1) PCR Not detected, Influ A (H1N1/09) PCR Not detected, Influenza A (H3) PCR Not detected, Influenza Type A (PCR) Not detected, Influenza Type B (PCR) Not detected, M. pneumoniae (PCR) Not detected, Parainfluenza 1 (PCR) Not detected, Parainfluenza 2 (PCR) Not detected, Parainfluenza 3 (PCR) Not detected, Parainfluenza 4 (PCR) Not detected, RSV (PCR) Not detected, Entero/Rhino (PCR) Not detected 10/05/25 10:30: Stool Occult Blood Negative I & O for Last 24 hours: Intake & Output 10/02/25 10/03/25 10/04/25 10/05/25 23:59 23:59 23:59 23:59 Intake Total 1100 / 1100 1644.167 / 1644.167 Output Total 650 / 650 Balance 1100 / 1100 994.167 / 994.167 Weight 62.596 kg 55.474 kg Constitutional Constitutional: no acute distress and chronically ill appearing Comments: Pleasant with cognitive impairment. *Routine HEENT Exam Head: Present normocephalic Eye: Present EOMI and PERRL ENT: Present mucous membranes moist *Routine Neck Exam Neck: Present supple; Absent lymphadenopathy *Routine Respiratory Exam Respiratory: Present CTA bilaterally *Routine Cardiovascular Exam Cardiovascular: Present RRR *Routine Abdominal Exam Abdominal: Present soft and normoactive bowel sounds; Absent tenderness *Routine Extremities Exam Extremities: Absent cyanosis, clubbing or edema *Routine Skin Exam Skin: Present warm; Absent rash *Routine Neurological Exam Neurological: Present alert Assessment and Plan *Assessment and plan (1) Right arm cellulitis: Status: Acute Category: Medical Code(s): L03.113 - Cellulitis of right upper limb (2) Sepsis: Status: Acute Qualifiers: Sepsis acute organ dysfunction status: unspecified Sepsis type: sepsis due to unspecified organism Qualified Code(s): A41.9 - Sepsis, unspecified organism Category: Medical Code(s): A41.9 - Sepsis, unspecified organism (3) Febrile illness, acute: Status: Acute Category: Medical Code(s): R50.9 - Fever, unspecified (4) Tuberous sclerosis: Status: Acute Category: Medical Code(s): Q85.1 - Tuberous sclerosis (5) Acute anemia: Status: Acute Category: Medical Code(s): D64.9 - Anemia, unspecified Plan Assessment/plan: This patient's case was discussed with the emergency department and agree with admission. 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 Presents due to abnormal vital signs within his nursing facility. It was noted patient was febrile, tachycardic and hypotensive. Currently being treated for right upper extremity cellulitis with Keflex. There was also concern of pneumonia. Patient reportedly did not take antibiotics today at his nursing facility. ED workup revealed possible urinary tract infection. Chest x-ray without acute findings. Patient admitted for evaluation and treatment of possible worsening of her right arm cellulitis and urinary tract infection with noted tachycardia, febrile state. Monitor and trend labs. 1. Sepsis/right arm cellulitis, UTI: Right upper arm cellulitis treated outpatient with Keflex. Concern of possible worsening underlying infection. On presentation right upper extremity appears to be mild in nature. Concern due to notable febrile state, tachycardia and reported hypotensive state prior to his arrival. There was also concern of possible underlying pneumonia and there was plan to start Levaquin at shelter. Chest x-ray as noted above without evidence of pneumonia. RPP obtained negative. Received IV fluids ED, blood cultures obtained/pending IV cefepime initiated within the emergency department. ? Patient had a fever of 100.7 on arrival, leukopenia worsened from 3.5-2.7 today. ? UA grossly abnormal, urine culture pending. ? Continue IV cefepime 2 g every 8 hours. ? Follow-up blood, urine culture. 2. Tuberosclerosis: Nonverbal, patient currently resides at the nursing facility. Typically resides at home with his dad as a caregiver, unfortunately his father recently fell and broke his head and patient has since been within the nursing facility since incident. 3. Acute anemia: Hemoglobin 7.8 per ED workup-significant change from a few days prior on 10/01 w/ hgb 9.5. No obvious source of active bleeding. Will continue to monitor trend with morning labs. Iron studies with morning labs. If hemoglobin drops below 7, type and screen with plan to transfuse packed red blood cell. ? Hemoglobin dropped slightly from 7.8-7.1 today, though in the setting of IV fluids. ? No signs of active bleeding, Hemoccult negative. Iron studies normal. ? Follow-up hemolytic studies with LDH, haptoglobin, uric acid. ? Follow-up repeat H&H. Full code DVT prophylaxis: IPC's Regular diet
[2025-10-05 19:04] LABS: Uric Acid 3.0 mg/dl (3.5-8.5)
[2025-10-05 19:25] LABS: Hematocrit 22.7 % (42.0-52.0); Hemoglobin 7.6 g/dL (14.1-18.0)
[2025-10-05 19:25] LABS: Bilirubin,Indirect 0.2 mg/dL (0.0-0.9)
[2025-10-05 19:45] VITALS: BP 126/61; PULSE 95; RESP 16; TEMP 37.4; O2SAT 100
[2025-10-05] MEDS: PANTOPRAZOLE 40MG TABLET 40 MG PO (20:22)
[2025-10-05] MEDS: TAMSULOSIN 0.4MG CAPSULE 0.4 MG PO (20:22)
[2025-10-06] VITALS: BP 125/75; PULSE 94; RESP 14; TEMP 37.1; O2SAT 98
[2025-10-06 04:00] VITALS: BP 117/73; PULSE 84; RESP 14; TEMP 36.4; O2SAT 96; BMI 17.8
--- NOTE | 2025-10-06 05:06 | PC.NURSE ---
Pt has remained alert to self only. Nonverbal. Able to tolerate pills whole with apple sauce. IV abx given. Q2 turns. Currently resting with bed alarm in place.
[2025-10-06] MEDS: CEFEPIME HCL 2 GM in 0.9 % SODIUM CHLORIDE 100 ML IV ×2 (06:16→13:40)
[2025-10-06 06:58] LABS: Albumin Level 2.4 g/dl (3.5-5.0); Chloride 104 mmol/L (98-107); Sodium 137 mmol/L (136-145)
[2025-10-06 06:59] LABS: Hematocrit 23.1 % (42.0-52.0); Hemoglobin 7.2 g/dL (14.1-18.0); Immature Granulocytes % 0.4 %; Mean Corpuscular HGB Conc 31.2 g/dL (31.8-35.4); Mean Corpuscular Hemoglobin 30.8 pg (27.0-31.2); Mean Corpuscular Volume 98.7 fl (80-94); Nucleated Red Blood Cells % 0 %; Platelet Count 130 K/mm3 (142-424); Potassium 4.2 mmoL/L (3.5-5.1); Red Blood Count 2.34 M/mm3 (4.60-6.20); Red Cell Distribution Width-SD 47.6 fL; White Blood Count 2.7 K/mm3 (4.8-10.8)
[2025-10-06 07:01] LABS: Alanine Aminotransferase 7 U/L (12-78); Albumin/Globulin Ratio 1.0 (1.1-1.8); Alkaline Phosphatase 103 U/L (38-126); Anion Gap 6.2 mEq/L (5-15); Aspartate Amino Transferase 17 U/L (17-59); Bilirubin,Total 0.3 mg/dl (0.2-1.3); Blood Urea Nitrogen 19 mg/dl (9-20); Calcium 8.0 mg/dl (8.4-10.2); Carbon Dioxide 31 mmol/L (22.0-30.0); Creatinine Clearance Estimated 115 mL/min (50-200); Creatinine,Serum 0.60 mg/dl (0.66-1.25); Estimated Glomerular Filt Rate 141 ml/min (>60); GFR (African American) 171 ML/MIN (>60); Globulin 2.5 g/dL (1.3-3.2); Glucose 78 mg/dl (74-100); Total Protein,Serum 4.9 g/dl (6.3-8.2)
[2025-10-06 08:00] VITALS: BP 141/76; PULSE 83; RESP 12; TEMP 36.8; O2SAT 95
[2025-10-06] MEDS: CHOLECALCIFEROL 1,000 UNITS (25MCG) TABLET 50 MCG PO (08:34)
[2025-10-06] MEDS: guaiFENesin 600 MG TAB.ER.12H PO (08:34)
[2025-10-06] MEDS: FAMOTIDINE 20MG TABLET 20 MG PO (08:34)
[2025-10-06] MEDS: DIVALPROEX 500MG (Delayed-Release) TABLET 500 MG PO (08:34)
--- NOTE | 2025-10-06 09:53 | CA_ITS ---
FINAL REPORT TECHNIQUE: Graded compression, spectral analysis and ultrasound images of the venous system of the upper extremity were obtained. CLINICAL HISTORY: CELLULITIS RUE,EDEMA RUE,PT HAS TUBLAR SCLEROSIS IS NON-VERBAL FINDINGS: The jugular vein, subclavian vein, axillary vein, brachial vein, cephalic vein and basilic venous system are fully compressible and demonstrate no evidence of thrombosis. IMPRESSION: No evidence of thrombosis of the venous system of the right upper extremity. Reviewed, Interpreted and Dictated by Luci Madrid MD Transcribed by Sheri Duran Authenticated and [facility]
[2025-10-06 10:43] LABS: Folate 3.48 ng/mL
--- NOTE | 2025-10-06 11:09 | HMH.PHAAMS2 ---
- Antimicrobial Stewardship Review culture & sensitivity review Stewardship interventions: culture & sensitivity review (CURRENTLY RECEIVING CEFEPIME, WBC LOW, AFEBRILE, NO GROWTH IN CX.)
[2025-10-06 12:00] VITALS: BP 123/71; PULSE 91; RESP 15; TEMP 36.8; O2SAT 94
--- NOTE | 2025-10-06 13:34 | EXP.DC.SUM ---
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 Presents from his nursing facility due to abnormal vital sign findings. Reported to be febrile, tachycardic and hypotensive. Due to nonverbal state the patient history provided per staff and chart review. Currently being treated for cellulitis of his right upper extremity. Patient was placed on Keflex. He was also reported to have pneumonia with plan of starting Levaquin today but did not take his antibiotics per nursing facility. ED workup revealing downtrending hemoglobin 7.8, UA with bacteria, white blood cells and trace leukocyte esterase. Received IV fluids and IV antibiotic cefepime with concern of urinary tract infection with concern of possible worsening cellulitis right upper extremity. Patient will be admitted for further evaluation and treatment. Initial ED workup included laboratory studies and imaging. Significant laboratory findings included hemoglobin 7.8, UA with bacteria, WBC cells present and trace leukocyte esterase. Imaging studies reviewed personally which included chest x-ray without any acute finding. Patient assessed at bedside and is hemodynamically stable, no acute distress at this time. Hospital Course Hospital Course Hospital Course: This patient's case was discussed with the emergency department and agree with admission. 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 Presents due to abnormal vital signs within his nursing facility. It was noted patient was febrile, tachycardic and hypotensive. Currently being treated for right upper extremity cellulitis with Keflex. There was also concern of pneumonia. Patient reportedly did not take antibiotics today at his nursing facility. ED workup revealed possible urinary tract infection. Chest x-ray without acute findings. Patient admitted for evaluation and treatment of possible worsening of her right arm cellulitis and urinary tract infection with noted tachycardia, febrile state. Cultures did not show any growth during admission. Patient's antibiotics were broadened to cefepime. Has been afebrile for over 24 hours. Right arm is not red. White count remains low at 2.7. Stable on room air. At this time we will complete short empiric course of Levaquin as intended prior to admission right arm cellulitis UTI: Right arm edema - Right upper arm cellulitis treated outpatient with Keflex. Concern of possible worsening underlying infection on admission however symptoms defervesced over the next 24 hours. White count remain low. Redness resolved in right arm. Does have edema that was evaluated with right upper extremity duplex. Preliminary report negative for DVT. Chest imaging obtained showing no concern for pneumonia, and also had no oxygen requirement during admission. Urine culture obtained showing mixed jose, additionally was obtained after treatment with Keflex as an outpatient. Blood cultures remain negative. Stable to return back to his nursing facility to complete course of Levaquin as initially started. Would treat for 5 more days 500 mg daily. Did have a temperature 200.7 on arrival that resolved and has been afebrile for over 24 hours prior to discharge. - Needs repeat labs in 1 week to monitor white count, hemoglobin, kidney function and electrolytes. Tuberous Sclerosis: Nonverbal, patient currently resides at the nursing facility. Typically resides at home with his dad as a caregiver, unfortunately his father recently fell and broke his head and patient has since been within the nursing facility since incident. No seizures during admission. Continued seizure medication Acute on chronic anemia: - Hemoglobin 7.8 per ED workup-significant change from a few days prior on 10/01 w/ hgb 9.5. No obvious source of active bleeding. Remained stable in the mid 7 range during admission. No transfusion indicated. No active signs of bleeding. Hemolytic studies with low LDH. Haptoglobin still pending at discharge. Initial concern for sepsis given white count of 3.5, tachycardic B12 normal at 779. Folate 3.5. Iron level normal at 67, saturation 55%. Recommend continuing multivitamin daily Stable to discharge back to nursing facility. Will complete short course of antibiotics. Recommend elevation of right arm. Overall doing well. Total time spent on discharge 32 minutes in documentation, chart review, direct examination and care of patient Exam Data for Last 24 hours Vital signs and Labs for Last 24 Hours: Temp Pulse Resp BP Pulse Ox O2 Del Method 98.2 F 91 H 15 123/71 94 L Room Air 10/06/25 12:00 10/06/25 12:00 10/06/25 12:00 10/06/25 12:00 10/06/25 12:00 10/06/25 12:00 Laboratory Results - last 24 hr 10/05/25 08:10: Uric Acid 3.0 L, Indirect Bilirubin 0.2, Lactate Dehydrogenase 216 L 10/05/25 19:15: Hgb 7.6 L, Hct 22.7 L 10/06/25 06:19: WBC 2.7 L, RBC 2.34 L, Hgb 7.2 L, Hct 23.1 L, MCV 98.7 H, MCH 30.8, MCHC 31.2 L, RDW 13.3, Plt Count 130 L, MPV 9.5, Neut % (Auto) 50.7, Lymph % (Auto) 35.0, Chaves % (Auto) 10.9 H, Eos % (Auto) 2.6, Baso % (Auto) 0.4, Neut # (Auto) 1.4 L, Lymph # (Auto) 0.9, Chaves # (Auto) 0.3, Eos # (Auto) 0.1, Baso # (Auto) 0.0, Sodium 137, Potassium 4.2, Chloride 104, Carbon Dioxide 31 H, Anion Gap 6.2, BUN 19, Creatinine 0.60 L, Estimated Creat Clear 115, Estimated GFR 141, Est GFR ( Amer) 171, Glucose 78, Calcium 8.0 L, Total Bilirubin 0.3, AST 17, ALT 7 L, Alkaline Phosphatase 103, Total Protein 4.9 L, Albumin 2.4 L, Globulin 2.5, Albumin/Globulin Ratio 1.0 L, Folate 3.48 I & O for Last 24 hours: Intake & Output 10/03/25 10/04/25 10/05/25 10/06/25 23:59 23:59 23:59 23:59 Intake Total 1100 / 1100 1644.167 / 1744.167 570 / 570 Output Total 775 / 925 575 / 575 Balance 1100 / 1100 869.167 / 819.167 -5 / -5 Weight 62.596 kg 55.474 kg 56.563 kg Microbiology Reports for the Last 24 Hours: Microbiology 10/04/25 21:28 Urine,Clean Catch Urine Culture - Final Multiple organisms, suggests contamination. 10/04/25 21:28 Urine,Catheterized Urine Culture - Final No growth. 10/04/25 21:36 Blood Blood Culture - Preliminary NO GROWTH AFTER 24 HOURS 10/04/25 21:01 Blood Blood Culture - Preliminary NO GROWTH AFTER 24 HOURS Constitutional Constitutional: no acute distress and chronically ill appearing Comments: Pleasant with cognitive impairment. Grinding teeth on exam. 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 *Routine Neck Exam Neck: Present supple; Absent lymphadenopathy *Routine Respiratory Exam Respiratory: Present CTA bilaterally; Absent rhonchi, wheezes or crackles *Routine Cardiovascular Exam Cardiovascular: Present RRR *Routine Abdominal Exam Abdominal: Present soft and normoactive bowel sounds; Absent tenderness *Routine Rectal Exam Patient deferred: visual exam *Routine Exam Patient deferred: penile exam *Routine Extremities Exam Extremities: Present edema (Right upper extremity, predominantly right forearm and hand); Absent cyanosis or clubbing *Routine Skin Exam Skin: Present intact and warm; Absent rash Comments: Tuberous lesions on sides of nose bilaterally; excoriations on bilateral thighs. Small break in skin on distal right carr with no surrounding erythema. *Routine Neurological Exam Neurological: Present alert, altered mental status (Baseline mentation. Nonverbal) and moving all extremities Results Data Completed and Pending Labs on day of discharge: Labs from last 24 hours 10/06/25 10/05/25 10/05/25 06:19 19:15 08:10 WBC 2.7 L RBC 2.34 L Hgb 7.2 L 7.6 L Hct 23.1 L 22.7 L MCV 98.7 H MCH 30.8 MCHC 31.2 L RDW 13.3 Plt Count 130 L MPV 9.5 Neut % (Auto) 50.7 Lymph % (Auto) 35.0 Chaves % (Auto) 10.9 H Eos % (Auto) 2.6 Baso % (Auto) 0.4 Neut # (Auto) 1.4 L Lymph # (Auto) 0.9 Chaves # (Auto) 0.3 Eos # (Auto) 0.1 Baso # (Auto) 0.0 Sodium 137 Potassium 4.2 Chloride 104 Carbon Dioxide 31 H Anion Gap 6.2 BUN 19 Creatinine 0.60 L Estimated Creat Clear 115 Estimated GFR 141 Est GFR ( Amer) 171 Glucose 78 Uric Acid 3.0 L Calcium 8.0 L Total Bilirubin 0.3 Indirect Bilirubin 0.2 AST 17 ALT 7 L Alkaline Phosphatase 103 Lactate Dehydrogenase 216 L Total Protein 4.9 L Albumin 2.4 L Globulin 2.5 Albumin/Globulin Ratio 1.0 L Folate 3.48 Preliminary micro results at discharge 10/04/25 21:36 Blood Culture - Preliminary Blood NO GROWTH AFTER 24 HOURS 10/04/25 21:01 Blood Culture - Preliminary Blood NO GROWTH AFTER 24 HOURS DS: Diagnosis Discharge Diagnosis (1) Right arm cellulitis: Status: Acute Code(s): L03.113 - Cellulitis of right upper limb (2) Sepsis: Status: Ruled-out Code(s): A41.9 - Sepsis, unspecified organism Qualifiers: Sepsis acute organ dysfunction status: unspecified Sepsis type: sepsis due to unspecified organism Qualified Code(s): A41.9 - Sepsis, unspecified organism (3) Febrile illness, acute: Status: Acute Code(s): R50.9 - Fever, unspecified (4) Tuberous sclerosis: Status: Acute Code(s): Q85.1 - Tuberous sclerosis (5) Acute anemia: Status: Acute Code(s): D64.9 - Anemia, unspecified (6) Edema of right forearm: Status: Acute Code(s): R60.0 - Localized edema Meds Home Medications and Allergies Home Medications ?Medication ?Instructions ?Recorded ?Confirmed ?Type amino ac-protein hydro-whey 30 ea PO BID 10/05/25 10/05/25 History protein 10 gram-100 kcal/30 mL oral liquid ([facility]) carbamazepine 200 mg tablet 600 mg PO 1200 10/05/25 10/05/25 History carbamazepine 200 mg tablet 700 mg PO BID 10/05/25 10/05/25 History cholecalciferol (vitamin D3) 50 50 mcg PO DAILY 10/05/25 10/05/25 History mcg (2,000 unit) capsule divalproex 500 mg tablet,delayed 500 mg PO BID 10/05/25 10/05/25 History release famotidine 20 mg tablet 20 mg PO BID 10/05/25 10/05/25 History furosemide 20 mg tablet 20 mg PO DAILY 10/05/25 10/05/25 History guaifenesin 600 mg tablet, 600 mg PO BID 10/05/25 10/05/25 History extended release 12 hr (Mucinex) multivitamin 1 tab PO DAILY 10/05/25 10/05/25 History tamsulosin 0.4 mg capsule 0.4 mg PO DAILY 10/05/25 10/05/25 History levofloxacin 500 mg tablet 500 mg PO DAILY 5 days #0 tabs 10/06/25 10/05/25 Rx New Prescriptions to Start Prescriptions: Allergies Allergy/AdvReac Type Severity Reaction Status Date / Time No Known Allergies Allergy Verified 10/04/25 21:26 Discharge Plan Disposition Patient Disposition: er Intermediate Care Fac Condition: Fair Discharge Order Discharge Orders: Discharge Order (Routine); Ordered 10/06/25 Ordered By: Man Walter Follow up Plan Follow up with: Bernadette Denis APRN [Primary Care Provider, Medical] - Enter time for follow up Prescriptions/Medication Reconciliation: Continued multivitamin Tablet 1 tab PO DAILY divalproex 500 mg tablet,delayed release (DR/EC) 500 mg PO BID carbamazepine 200 mg tablet 600 mg PO 1200 carbamazepine 200 mg tablet 700 mg PO BID famotidine 20 mg Tablet 20 mg PO BID tamsulosin 0.4 mg Capsule 0.4 mg PO DAILY furosemide 20 mg Tablet 20 mg PO DAILY cholecalciferol (vitamin D3) 50 mcg (2,000 unit) capsule 50 mcg PO DAILY [facility] 10-100 gram-kcal/30 mL Liquid 30 ea PO BID guaifenesin [Mucinex] 600 mg Tablet Extended Release 12hr 600 mg PO BID levofloxacin 500 mg Tablet 500 mg PO DAILY 5 Days Qty: 0 0RF Discontinued cephalexin 500 mg Capsule 500 mg PO TID Problem Reconciliation Problems Reviewed?: Yes Patient Discharge Instructions ACTIVITY: Continue current activity DIET: continue same diet Patient Instructions: DI for Sepsis in Adults, Stop Light Infection Print Language: Micronesian Providers Primary Care Provider: Bernadette Denis Admit Provider: Hernando Kowalski Attending Provider: Hernando Kowalski
== END 2025-10-06 17:56 ==
LOC: ER 23:05 → 2ND 23:16
PROVIDERS: Nurse Practitioner Acute Care; Admitting Provider Student in an Organized Health Care Education/Training Program; Emergency Provider Student in an Organized Health Care Education/Training Program; PCP Nurse Practitioner Family; Visit Provider Student in an Organized Health Care Education/Training Program
DX: L03.113 Cellulitis of right upper limb (principal); A41.9 Sepsis, unspecified organism; Q85.1 Tuberous sclerosis; D64.9 Anemia, unspecified; R60.0 Localized edema
CPT/HCPCS: 0223U; 36415; 71045; 80053; 81001; 82272; 82550; 82607; 82728; 82746; 83010; 83540; 83550; 83605; 83615; 84550; 85014; 85018; 85025; 85610; 85730; 87040; 87086; 87631; 93971; 97162; 97166; 99285; G0328; G0378; J0131; J0692; J1650; J7030; J7120

== ENCOUNTER 2025-10-09 00:28 | Emergency (ER) | payer MEDICARE, MEDICAID, SELFPAY ==
[2025-10-09] VITALS (24 sets, daily range): BP systolic 105–136; BP diastolic 68–83; PULSE 72–114; RESP 16–18; TEMP 37.3–37.7; O2SAT 95–100; BMI 17.6
--- NOTE | 2025-10-09 00:56 | CT_ITS ---
PROCEDURE INFORMATION: Exam: CT Abdomen And Pelvis With Contrast Exam date and time: 10/09/2025 1:51 AM Age: 50 years old Clinical indication: Other: Sepsis; Additional info: Sepsis, nonverbal, reassuring exam TECHNIQUE: Imaging protocol: Computed tomography of the abdomen and pelvis with contrast. 3D rendering (Not supervised by radiologist): MIP and/or 3D reconstructed images were created by the technologist. Radiation optimization: All CT scans at this facility use at least one of these dose optimization techniques: automated exposure control; mA and/or kV adjustment per patient size (includes targeted exams where dose is matched to clinical indication); or iterative reconstruction. Contrast material: ISOVUE; Contrast volume: 80 ml; Contrast route: IV; COMPARISON: CR XR CHEST PORTABLE 10/04/2025 9:25 PM FINDINGS: Limitations: Motion artifact degrades image quality and limits the sensitivity of this examination. Pleural spaces: Small bilateral pleural effusions. Liver: Normal. No mass. Gallbladder and biliary ducts: Mildly distended gallbladder with wall thickening and pericholecystic fluid. Pancreas: Normal. No ductal dilation. Spleen: Normal. No splenomegaly. Adrenal glands: Normal. No mass. Kidneys and ureters: Normal. No hydronephrosis. Stomach and bowel: Unremarkable. No obstruction. No mucosal thickening. Appendix: No evidence of appendicitis. Intraperitoneal space: Small volume of ascites. Vasculature: Unremarkable. No abdominal aortic aneurysm. Lymph nodes: Unremarkable. No enlarged lymph nodes. Urinary bladder: Unremarkable as visualized. Reproductive: Unremarkable as visualized. Bones/joints: Chronic left femoral neck fracture versus resection with osteonecrosis of the femoral head. Impacted nondisplaced fracture of the subcapital right femoral neck. Numerous small sclerotic lesions throughout the spine and pelvis. Soft tissues: 3.5 cm cyst in the left pelvic floor. IMPRESSION: 1. Mildly distended gallbladder with wall thickening and pericholecystic fluid. Sonographic evaluation recommended. 2. Small volume of ascites. 3. Impacted nondisplaced fracture of the subcapital right femoral neck. 4. Numerous small sclerotic lesions throughout the spine and pelvis. Possibly representing bone islands. Osseous metastatic disease would have a similar appearance. Correlate clinically.
--- NOTE | 2025-10-09 00:56 | CT_ITS ---
PROCEDURE INFORMATION: Exam: CTA Chest With Contrast Exam date and time: 10/09/2025 1:51 AM Age: 50 years old Clinical indication: Other: Sepsis; Additional info: Tachy febrile, sepsis TECHNIQUE: Imaging protocol: Computed tomographic angiography of the chest with contrast. Exam focused on the arteries. 3D rendering (Not supervised by radiologist): MIP and/or 3D reconstructed images were created by the technologist. Radiation optimization: All CT scans at this facility use at least one of these dose optimization techniques: automated exposure control; mA and/or kV adjustment per patient size (includes targeted exams where dose is matched to clinical indication); or iterative reconstruction. Contrast material: ISOVUE; Contrast volume: 80 ml; Contrast route: INTRAVENOUS (IV); COMPARISON: CR XR CHEST PORTABLE 10/04/2025 9:25 PM FINDINGS: Pulmonary arteries: Normal. No pulmonary emboli. Aorta: Unremarkable. No aortic aneurysm. No aortic dissection. Lungs: Compressive atelectasis of the adjacent lower lobes. Pleural spaces: Small bilateral pleural effusions. Heart: Unremarkable. No cardiomegaly. No pericardial effusion. Lymph nodes: Unremarkable. No enlarged lymph nodes. Bones/joints: Unremarkable. No acute fracture. Soft tissues: Unremarkable. IMPRESSION: 1. No acute findings. 2. Small bilateral pleural effusions. Compressive atelectasis of the adjacent lower lobes.
--- NOTE | 2025-10-09 01:01 | HMH.EDGENADL ---
Discharge Plan Disposition Patient Disposition: Xfer Short-Term Hosp Condition: Fair Prescriptions Prescriptions: No Action multivitamin Tablet 1 tab PO DAILY divalproex 500 mg tablet,delayed release (DR/EC) 500 mg PO BID carbamazepine 200 mg tablet 600 mg PO 1200 carbamazepine 200 mg tablet 700 mg PO BID famotidine 20 mg Tablet 20 mg PO BID tamsulosin 0.4 mg Capsule 0.4 mg PO DAILY furosemide 20 mg Tablet 20 mg PO DAILY cholecalciferol (vitamin D3) 50 mcg (2,000 unit) capsule 50 mcg PO DAILY ProSource 10-100 gram-kcal/30 mL Liquid 30 ea PO BID guaifenesin [Mucinex] 600 mg Tablet Extended Release 12hr 600 mg PO BID levofloxacin 500 mg Tablet 500 mg PO DAILY 5 Days Qty: 0 0RF Referrals Follow up/Referrals: Bernadette Denis APRN [Primary Care Provider, Medical] - See instructions Clinical Impressions Clinical Impression: Sepsis, Cholecystitis, Anasarca, Closed fracture of right hip, Closed fracture of left hip, Hypoalbuminemia Stand Alone Forms Stand Alone Forms: Transfer Record - ED Print Language Print Language: Estonian Discharge ED Provider: Sarabjit Arora General Adult HPI General Chief complaint: Fever Stated complaint: Pain Time Seen by Provider: 10/09/25 00:29 Mode of Arrival: EMS Source of Information: EMS Description of Symptoms (Recalled from ER Triage Doc. by RN): Pt presents to the ED via [facility] from [facility] with c/o fever and tachycardia. Nurse at [facility] center rpeorts that the pt was D/C from [facility] 3 days ago for sepsis and states that I think he is still septic . She reported that the pt's temp. was 101.3 and pt revieved tylenol [employer]. She also reports that the pt has edema to R arm and bilateral lower extremeties. 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 re[facility] presents to the ER with [facility] for concerns of fever and persistent swelling. Patient was reportedly discharged from this facility 3 days ago after being admitted for sepsis. Review of records demonstrates there was concern for possible UTI and right upper extremity cellulitis. Patient was discharged on Levaquin which reportedly he has been taking. EMS was called because the patient's temperature was 101.2 prior to arrival. Nursing facility administered Tylenol. They are concerned he has persistent swelling of the right upper extremity and bilateral lower extremities. Review of records demonstrates this was present during his admission. He had a negative DVT ultrasound of the right upper extremity while admitted. Nursing facility was reportedly concerned that he is still septic . They did not provide any additional history of new vomiting, cough, or other associated symptoms. Related Data Home Medications ?Medication ?Instructions ?Recorded ?Confirmed amino ac-protein hydro-whey 30 ea PO BID 10/05/25 10/05/25 protein 10 gram-100 kcal/30 mL oral liquid (ProSource) carbamazepine 200 mg tablet 600 mg PO 1200 10/05/25 10/05/25 carbamazepine 200 mg tablet 700 mg PO BID 10/05/25 10/05/25 cholecalciferol (vitamin D3) 50 50 mcg PO DAILY 10/05/25 10/05/25 mcg (2,000 unit) capsule divalproex 500 mg tablet,delayed 500 mg PO BID 10/05/25 10/05/25 release famotidine 20 mg tablet 20 mg PO BID 10/05/25 10/05/25 furosemide 20 mg tablet 20 mg PO DAILY 10/05/25 10/05/25 guaifenesin 600 mg tablet, 600 mg PO BID 10/05/25 10/05/25 extended release 12 hr (Mucinex) multivitamin 1 tab PO DAILY 10/05/25 10/05/25 tamsulosin 0.4 mg capsule 0.4 mg PO DAILY 10/05/25 10/05/25 Previous Rx's ?Medication ?Instructions ?Recorded levofloxacin 500 mg tablet 500 mg PO DAILY 5 days #0 tabs 10/06/25 Allergies Allergy/AdvReac Type Severity Reaction Status Date / Time No Known Allergies Allergy Verified 10/09/25 00:54 [facility] Disclaimer: The information contained in this section may have been updated after the patient was seen, as this information can be updated by other users. Medical History (Updated 10/09/25 @ 05:09 by Sarabjit Arora MD) Idiopathic absence epilepsy Edema Tuberous sclerosis Epilepsy Social History Smoking Status: Never smoker alcohol intake: never current occupational status: disabled Travel in the last 8 weeks?: None Have you lived/traveled outside [place] in past 30 days?: No Contact w/someone who lives/traveled outside US past 30 days?: No Exposure to someone with infectious disease in past 14 days?: No Do you have a fever (greater than 100.4 F or 38 C)?: No Have you tested positive for COVID-19?: No Exposed to someone with COVID-19 in past 14 days?: No Do you have a sore throat?: No Do you have a cough?: No Do you have any weakness?: No Do you have any diarrhea?: No Are you experiencing any unusual bleeding?: No Do you have any muscle aches/pain?: No Do you have any abdominal pain?: No Are you experiencing loss of taste or smell?: No Other Medical History Have you received the Flu Vaccine for this season: No Have you received the Pneumonia Vaccine: No ROS Obtained: Yes Systems reviewed as appropriate & no additional complaints except as documented Per HPI Physical Exam General General appearance: alert and in no apparent distress Comment: Chronically ill-appearing Head Head exam: atraumatic and normocephalic Eye Eye exam: Present PERRL and EOMI ENT ENT exam: Present mucous membranes moist and other (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) Neck Neck exam: Present normal inspection and full ROM Chest Chest inspection: Present symmetric chest wall rise Respiratory Respiratory exam: Present normal lung sounds bilaterally; Absent respiratory distress, wheezes or stridor Cardiovascular Cardiovascular exam: Present normal rhythm and tachycardia Abdominal Exam Abdominal exam: Present soft; Absent distention, tenderness, guarding or rebound Extremities Exam Extremities exam: Present full ROM, normal capillary refill and edema (Edema bilateral lower extremities 2+ pitting, edema of the distal two thirds of the right upper extremity with pitting. No redness or tenderness. No palpable tender cord.); Absent joint swelling Neurological Exam Neurological exam: Present alert and other (Nonverbal at baseline); Absent motor sensory deficit (Contractures of the extremities which are worse in the left upper extremity, response to stimuli equal in each extremity) Skin Skin exam: Present warm and dry Medical Decision Making Medical Records Medical records reviewed: Yes I reviewed the patient's medical records. Screening: Per USPSTF and CDC recommendations, given the prevalence of disease in our region, it is our hospital?s policy to screen for HIV and viral Hepatitis for all patients aged 18 and over and those with ongoing risk factors. Madi Inquiry Pt receiving controlled substance: No Vital Signs: 10/09/25 00:41 10/09/25 01:24 10/09/25 01:30 Temperature 99.8 F H Temperature Source Axillary Pulse Rate 96 H Pulse Rate [Left] 114 H Respiratory Rate 18 Blood Pressure 132/83 Blood Pressure [Left Arm] 115/68 Blood Pressure Mean 91 Blood Pressure Mean [Left Arm] 83 02 Sat by Pulse Oximetry 99 100 Oxygen Delivery Method Room Air Room Air 10/09/25 01:30 10/09/25 02:03 10/09/25 02:15 Temperature Temperature Source Pulse Rate 102 H 98 H 93 H Pulse Rate [Left] Respiratory Rate Blood Pressure Blood Pressure [Left Arm] Blood Pressure Mean Blood Pressure Mean [Left Arm] 02 Sat by Pulse Oximetry 100 100 100 Oxygen Delivery Method Room Air Room Air Room Air 10/09/25 02:30 10/09/25 02:30 10/09/25 02:45 Temperature Temperature Source Pulse Rate 94 H 88 Pulse Rate [Left] Respiratory Rate Blood Pressure 115/77 Blood Pressure [Left Arm] Blood Pressure Mean 84 Blood Pressure Mean [Left Arm] 02 Sat by Pulse Oximetry 100 99 Oxygen Delivery Method Room Air Room Air 10/09/25 03:00 10/09/25 03:00 10/09/25 03:15 Temperature Temperature Source Pulse Rate 91 H 83 Pulse Rate [Left] Respiratory Rate Blood Pressure 105/73 L Blood Pressure [Left Arm] Blood Pressure Mean 79 Blood Pressure Mean [Left Arm] 02 Sat by Pulse Oximetry 99 100 Oxygen Delivery Method Room Air Room Air 10/09/25 03:30 10/09/25 03:30 10/09/25 03:45 Temperature Temperature Source Pulse Rate 85 81 Pulse Rate [Left] Respiratory Rate Blood Pressure 115/76 Blood Pressure [Left Arm] Blood Pressure Mean 83 Blood Pressure Mean [Left Arm] 02 Sat by Pulse Oximetry 100 99 Oxygen Delivery Method Room Air Room Air 10/09/25 04:00 10/09/25 04:00 10/09/25 04:15 Temperature Temperature Source Pulse Rate 80 75 Pulse Rate [Left] Respiratory Rate Blood Pressure 109/70 L Blood Pressure [Left Arm] Blood Pressure Mean 77 Blood Pressure Mean [Left Arm] 02 Sat by Pulse Oximetry 99 100 Oxygen Delivery Method Room Air Room Air 10/09/25 04:27 10/09/25 04:27 10/09/25 04:31 Temperature Temperature Source Pulse Rate 85 Pulse Rate [Left] Respiratory Rate Blood Pressure 136/81 129/81 Blood Pressure [Left Arm] Blood Pressure Mean 99 93 Blood Pressure Mean [Left Arm] 02 Sat by Pulse Oximetry 97 Oxygen Delivery Method Room Air 10/09/25 04:31 10/09/25 04:45 10/09/25 05:00 Temperature Temperature Source Pulse Rate 91 H 88 Pulse Rate [Left] Respiratory Rate Blood Pressure 127/77 Blood Pressure [Left Arm] Blood Pressure Mean 86 Blood Pressure Mean [Left Arm] 02 Sat by Pulse Oximetry 100 98 Oxygen Delivery Method Room Air Room Air 10/09/25 05:00 10/09/25 05:15 10/09/25 05:30 Temperature Temperature Source Pulse Rate 81 88 77 Pulse Rate [Left] Respiratory Rate Blood Pressure Blood Pressure [Left Arm] Blood Pressure Mean Blood Pressure Mean [Left Arm] 02 Sat by Pulse Oximetry 99 99 99 Oxygen Delivery Method Room Air Room Air Room Air 10/09/25 05:30 10/09/25 05:45 10/09/25 06:00 Temperature Temperature Source Pulse Rate 72 79 Pulse Rate [Left] Respiratory Rate Blood Pressure 122/77 Blood Pressure [Left Arm] Blood Pressure Mean 84 Blood Pressure Mean [Left Arm] 02 Sat by Pulse Oximetry 99 95 Oxygen Delivery Method Room Air Room Air 10/09/25 06:00 10/09/25 06:15 10/09/25 06:30 Temperature Temperature Source Pulse Rate 82 Pulse Rate [Left] Respiratory Rate Blood Pressure 108/73 L 114/70 Blood Pressure [Left Arm] Blood Pressure Mean 80 77 Blood Pressure Mean [Left Arm] 02 Sat by Pulse Oximetry 97 Oxygen Delivery Method Room Air 10/09/25 06:30 Temperature Temperature Source Pulse Rate 83 Pulse Rate [Left] Respiratory Rate Blood Pressure Blood Pressure [Left Arm] Blood Pressure Mean Blood Pressure Mean [Left Arm] 02 Sat by Pulse Oximetry 100 Oxygen Delivery Method Room Air Lab Data Lab Results 10/09/25 01:00: Chlamy pneumoniae PCR Not detected, Adenovirus (PCR) Not detected, B. pertussis DNA (PCR) Not detected, Coronavirus OC43 (PCR) Not detected, Coronavirus HKU1 (PCR) Not detected, Coronavirus 229E (PCR) Not detected, SARS-CoV-2 (PCR) Not detected, Coronavirus NL63 (PCR) Not detected, Human Metapneumovir PCR Not detected, Influenza A (H1) PCR Not detected, Influ A (H1N1/09) PCR Not detected, Influenza A (H3) PCR Not detected, Influenza Type A (PCR) Not detected, Influenza Type B (PCR) Not detected, M. pneumoniae (PCR) Not detected, Parainfluenza 1 (PCR) Not detected, Parainfluenza 2 (PCR) Not detected, Parainfluenza 3 (PCR) Not detected, Parainfluenza 4 (PCR) Not detected, RSV (PCR) Not detected, Entero/Rhino (PCR) Not detected 10/09/25 01:15: WBC 2.7 L, RBC 2.28 L, Hgb 7.2 L, Hct 22.6 L, MCV 99.1 H, MCH 31.6 H, MCHC 31.9, RDW 14.7, Plt Count 165 D, MPV 9.2, Neut % (Auto) 55.9, Lymph % (Auto) 30.1, [place] % (Auto) 11.7 H, Eos % (Auto) 1.5, Baso % (Auto) 0.4, Neut # (Auto) 1.5 L, Lymph # (Auto) 0.8, [place] # (Auto) 0.3, Eos # (Auto) 0.0, Baso # (Auto) 0.0, PT 11.4, INR 1.03, Sodium 137, Potassium 3.8, Chloride 107, Carbon Dioxide 31 H, Anion Gap 2.8 L, BUN 14 D, Creatinine 0.60 L, Estimated Creat Clear 114, Estimated GFR 141, Est GFR ( Amer) 171, Glucose 91, Lactate 1.5, Calcium 7.8 L, Total Bilirubin 0.3, AST 25 D, ALT 11 L D, Alkaline Phosphatase 185 H, Troponin I < 0.01, NT-Pro-B Natriuret Pep 888 H, Total Protein 5.1 L, Albumin 2.5 L, Globulin 2.6, Albumin/Globulin Ratio 1.0 L 10/09/25 02:00: Urine Color Yellow, Urine Appearance Clear, Urine pH 7.0, Ur Specific [place] 1.025, Urine Protein Trace, Urine Glucose (UA) Negative, Urine Ketones Trace, Urine Blood Negative, Urine Nitrate Negative, Urine Bilirubin Negative, Urine Urobilinogen 0.2, Ur Leukocyte Esterase Negative, Urine WBC 3-5, Ur Squamous Epith Cells Occasional, Calcium Oxalate Crystal 1+, Urine Bacteria 1+, Hyaline Casts 10-20, Urine Mucus 2+ 10/09/25 04:25: Troponin I < 0.01 10/09/25 01:15 10/09/25 01:15 Orders (Tests/Meds): ED MEDICATIONS Generic Name Dose Route Start Last Admin Trade Name Freq PRN Reason Stop Dose Admin Metronidazole 500 mg in 100 mls @ 100 mls/hr 10/09/25 04:15 10/09/25 05:46 Flagyl 500mg/100ml Ivpb IV 10/19/25 04:14 Infused Q8H HORACIO Infusion Discontinued Medications Generic Name Dose Route Start Last Admin Trade Name Freq PRN Reason Stop Dose Admin Albumin Human 12.5 gm in 50 mls @ 100 mls/hr 10/09/25 03:57 10/09/25 05:47 Albumin 25% (12.5gm) Soln 50ml Bag IV 10/09/25 04:56 Infused Q30M HORACIO Infusion Lactated Ringer's 1,000 mls @ 999 mls/hr 10/09/25 03:59 10/09/25 04:09 Lactated Ringer's 1000 Ml Bag IV 10/09/25 04:59 999 mls/hr .Q1H1M ONE Administration Iopamidol 80 ml 10/09/25 02:06 10/09/25 02:06 Iopamidol-370 (76%);100ml Bottle IV 10/09/25 02:07 80 ml ONCE ONE Administration Morphine Sulfate 2 mg 10/09/25 04:01 10/09/25 04:10 Morphine 2mg/Ml Syringe IV 10/09/25 04:02 2 mg ONCE ONE Administration Morphine Sulfate 2 mg 10/09/25 05:05 10/09/25 05:11 Morphine 2mg/Ml Syringe IV 10/09/25 05:06 2 mg ONCE ONE Administration Sodium Chloride 50 ml 10/09/25 02:06 10/09/25 02:07 0.9 % Sodium Chloride 50 Ml Vial IV 10/09/25 02:07 50 ml ONCE ONE Administration Sodium Chloride 10 ml 10/09/25 02:06 10/09/25 02:06 Sodium Chloride 0.9% 10ml Syr (Rad Only) IV 10/09/25 02:07 10 ml ONCE ONE Administration ORDERS Category Date Time Status CT abdomen pelvis w con Stat Cat Scan 10/09/25 00:[address] angio chest PE protocol Stat Cat Scan 10/09/25 00:56 Completed Forearm XR left 2 views [XR forearm LT 2V] Stat Exams 10/09/25 04:22 Taken Forearm XR right 2 views [XR forearm RT 2V] Stat Exams 10/09/25 04:24 Taken POCUS Point of Care (ER Only) Stat Exams 10/09/25 00:50 Completed BNP [NT Pro Brain Natriuretic Pep.] Stat Lab 10/09/25 01:15 Completed Complete Blood Count Auto Diff Stat Lab 10/09/25 01:15 Completed Comprehensive Metabolic Panel Stat Lab 10/09/25 01:15 Completed Full Resp Panel w/COVID ([facility]) Routine Lab 10/09/25 01:00 Completed Lactic Acid Stat Lab 10/09/25 01:15 Completed Prothrombin Time INR Stat Lab 10/09/25 01:15 Completed Trop T [Troponin I] Stat Lab 10/09/25 01:15 Completed Troponin I Q3H Lab 10/09/25 04:25 Completed Troponin I Q3H Lab 10/09/25 07:00 Ordered Urinalysis and Microscopic Stat Lab 10/09/25 02:00 Completed Blood Culture Stat Micro 10/09/25 01:15 Received Medical Decision Narrative: In summary, this 50-year-old male with comorbidities described in the HPI presents to the emergency department today with concerns of persistent sepsis from care home. On initial evaluation patient is mildly tachycardic with elevated temperature but not truly febrile, normotensive, according to reports he is behaving at his baseline which is nonverbal, not following commands but does respond to stimuli. He seems very painful when being moved but has no murmurs, rubs, or gallops, no chest tenderness, no abdominal tenderness appreciated, I cannot identify a specific area of tenderness with palpation on this patient. There does not appear to be an obvious acute traumatic injury. There are contractures and abnormal positioning of all extremities, worst contractures are in the left upper extremity. Patient has significant pitting edema in the bilateral lower extremities as well as the right upper extremity. Review of records demonstrates patient had DVT ultrasound of the right upper extremity during his admission here and there was no DVT identified. He has been on levofloxacin which he receives at night from the nursing facility. He reportedly did receive his dose tonight. Further examination demonstrates equal ecchymosis on the distal anterior femurs without associated deformity. Bruising left forearm. Stage II decubitus ulcer sacral. Healing superficial skin tear right carr. Differential diagnosis includes but is not limited to sepsis, viral infection, intra-abdominal or intrathoracic infection, patient is bedbound and according to nursing facility has not had any recent falls since arriving there 13 days ago so I have low suspicion for acute traumatic injury. I suspect that the old appearing ecchymosis on the bilateral thighs is likely related to the patient having both legs in an externally rotated position chronically and legs being against the bed rails. I considered the possibility of pneumonia, UTI, among others. He has significant anasarca and I suspect that his tachycardia is in large part related to the fact he still has an elevated temperature. I am going to wait to start a fluid bolus until labs are back and will likely not give a full sepsis bolus since I do not want to volume overload this patient. Based on these concerns, I ordered hematologic and serum labs, cardiac workup, blood cultures, CT imaging of the chest, abdomen, pelvis including angiography of the chest to evaluate for possible PE since patient is mildly tachycardic on arrival though I have lower suspicion for PE. Urine studies have been ordered as well as viral swab. POCUS for DVT of Right arm negative. See procedure note. ECG personally interpreted demonstrates sinus rhythm, rate 96, normal axis, normal WI and QTc, no STEMI. Patient received IV fluids at less than a sepsis bolus due to the reasons documented above, albumin for treatment. I discussed with on-call pharmacist Tootie possibly starting empiric antibiotics but patient is already on levofloxacin. Without another source for infection at this time, she recommended having workup completed before starting empiric antibiotics which I believe is reasonable since levofloxacin is already a broad antibiotic. Labs personally reviewed demonstrate persistent leukopenia and anemia unchanged from prior. Normal platelets, monocyte predominance, PT/INR normal, CMP is mostly notable for hypoalbuminemia, patient is receiving albumin to hopefully pull fluid intravascularly that appears to be third spaced. Troponin undetectable less than 0.01, BNP elevated at 888 but improved from previous. Cath urine appears negative for findings of infection though there is a small amount of bacteria present, no nitrates and only few WBCs. I am not going to change antibiotics at this time based on this UA CTAP personally interpreted does not demonstrate obvious PE, there is bilateral pleural effusions with some associated atelectasis, CT abdomen pelvis demonstrates ascites, slightly thickened appearing gallbladder with concern of pericholecystic fluid. Alkaline phosphatase is elevated at 185 but on reexamination of the abdomen patient does not seem to have focal tenderness in this area. Viral swab negative for all analytes. I reviewed the radiology reads for the CTs which remarked that the patient has bilateral hip fractures. I reach out to the reading radiologist and the left appears chronic. After further discussion with the care home, it turns out the patient has had previous falls prior to his admission to the nursing facility that caused a left hip fracture as well as tib-fib fracture, reportedly they are only supposed to have the patient in the boot when he is up. He also has a right hip fracture and the radiologist I called and spoke to reports this appears acute. He suspects it is less than 2 weeks old because there is no callus formation appreciated. Nursing facility did not report a fall to us even when questioned about it. Radiologist states it does not appear to be pathologic though there are abnormalities in the spine that could be bone islands versus possible malignancy. Ultimately because of the findings in the hips, specifically the acute fracture of the right hip, patient is receiving pain medication as well as x-rays of the upper extremities where he has tenderness, bruising, and swelling to evaluate for further traumatic injury. I do have some concern for possibly unreported fall or injury from the nursing facility due to the acute nature of the right hip fracture. Because of the findings regarding the gallbladder, Flagyl is being administered at the recommendation of the on-call pharmacist. He recommends levofloxacin be continued at 750 IV daily on the 24-hour schedule at which it has been being administered. I appreciate his recommendations. He does not require additional levofloxacin at this time since he received his dose at night and got his evening dose today. Personally interpreted x-rays which do not appear to demonstrate other acute osseous injury. See radiology reads. Due to the complexity of this patient's medical history, concerning findings for possible cholecystitis with pericholecystic fluid, meeting criteria for sepsis, evidence of new right hip fracture, I reached out to the patient's family multiple times attempting to reach either the patient's mother or brother who are both listed in the chart. Unfortunately I was not able to initially reach them. Ultimately the brother, Paul, did call back. He states mother is guardian but is sleeping at this time. I discussed with him that I recommended the patient be transferred to for higher level of care for evaluation of possible percutaneous cholecystostomy drain versus gallbladder removal as well as evaluation of the hip fracture in the setting of his complex medical history. Ultimately family is agreeable to this. I reached out to and spoke with Dr. Miranda and the transfer center. After reviewing this case, labs, interventions in the ER, he graciously accepted the patient for transfer to [facility]. Patient remained in the ER until transportation became available. He was reassessed immediately prior to transfer. He is protecting his airway, mental status has stayed stable. He is currently hemodynamically stable. He is appropriate and stable for transfer. Procedures Miscellaneous Procedure Procedure Performed: Limited DVT ultrasound Performed by Sarabjit Arora MD Indication: Limited compression ultrasonography of the right upper extremity was performed to evaluate for non-compressibility of the deep veins in the patient. The ultrasound was performed with the following indications, as noted in the H&P: Right arm swelling Identified structures: Right [Ulnar vein, radial vein, cephalic vein, basilic vein, axillary vein.] Findings: Upper extremity: Right UV good compressibility Right RV: Good compressibility Right Cephalic vein: Good compressible Right Basilic vein: Good compressibility Right Axillary vein: Good compressibility Impression: Normal Images were saved to permanent archive The study was technically adequate CPT: 33154-38-IB 87361-15-DO 95363-61 (complete bilateral study) This study was performed by me, and I personally interpreted all images/videos. Based on my clinical judgement, these images were adequate and did not necessitate further imaging. Critical Care Critical Care Time Critical Care Time: No
[2025-10-09 01:09] LABS: Adenovirus,PCR Not Detected (NotDetected); Chlamydophila Pneumoniae, PCR Not Detected (NotDetected); Coronavirus 19, PCR Not Detected (NotDetected); Coronovirus HKU1,PCR Not Detected (NotDetected); Influenza A, PCR Not Detected (NotDetected); Influenza AH1, 2009 Not Detected (NotDetected); Influenza AH1, PCR Not Detected (NotDetected); Influenza AH3,PCR Not Detected (NotDetected); Influenza B, PCR Not Detected (NotDetected); Mycoplasma Pneumoniae, PCR Not Detected (NotDetected); Parainfluenza 1, PCR Not Detected (NotDetected); Parainfluenza 2, PCR Not Detected (NotDetected); Parainfluenza 3, PCR Not Detected (NotDetected); Parainfluenza 4, PCR Not Detected (NotDetected)
[2025-10-09 01:30] LABS: Hematocrit 22.6 % (42.0-52.0); Hemoglobin 7.2 g/dL (14.1-18.0); Immature Granulocytes % 0.4 %; Mean Corpuscular HGB Conc 31.9 g/dL (31.8-35.4); Mean Corpuscular Hemoglobin 31.6 pg (27.0-31.2); Mean Corpuscular Volume 99.1 fl (80-94); Nucleated Red Blood Cells % 0 %; Platelet Count 165 K/mm3 (142-424); Red Blood Count 2.28 M/mm3 (4.60-6.20); Red Cell Distribution Width-SD 51.3 fL; White Blood Count 2.7 K/mm3 (4.8-10.8)
--- NOTE | 2025-10-09 01:31 | ECG_ITS ---
APPROVED REPORT Exam: Resting ECG HR:96 bpm ECG Measurements Heart Rate 96 AXES UT 164 P 69 QRSd 117 QRS 88 QT 357 T 65 QTc 411 Conclusion SINUS RHYTHM MODERATE INTRAVENTRICULAR CONDUCTION DELAY [110+ ms QRS DURATION] BORDERLINE ECG No STEMI Electronically signed by : SAMIRA HARE, 10/10/2025 07:07:56
[2025-10-09 01:37] LABS: Alanine Aminotransferase 11 U/L (12-78); Albumin Level 2.5 g/dl (3.5-5.0); Albumin/Globulin Ratio 1.0 (1.1-1.8); Alkaline Phosphatase 185 U/L (38-126); Anion Gap 2.8 mEq/L (5-15); Aspartate Amino Transferase 25 U/L (17-59); Bilirubin,Total 0.3 mg/dl (0.2-1.3); Blood Urea Nitrogen 14 mg/dl (9-20); Calcium 7.8 mg/dl (8.4-10.2); Carbon Dioxide 31 mmol/L (22.0-30.0); Chloride 107 mmol/L (98-107); Creatinine Clearance Estimated 114 mL/min (50-200); Creatinine,Serum 0.60 mg/dl (0.66-1.25); Estimated Glomerular Filt Rate 141 ml/min (>60); GFR (African American) 171 ML/MIN (>60); Globulin 2.6 g/dL (1.3-3.2); Glucose 91 mg/dl (74-100); Potassium 3.8 mmoL/L (3.5-5.1); Sodium 137 mmol/L (136-145); Total Protein,Serum 5.1 g/dl (6.3-8.2)
[2025-10-09 01:42] LABS: INR 1.03 (0.9-1.1); Prothrombin Time 11.4 seconds (10.1-12.5)
[2025-10-09 01:45] LABS: NT Pro Brain Natriuretic Pep. 888 pg/mL (0-125)
[2025-10-09] MEDS: SODIUM CHLORIDE 0.9% 10ML SYR (RAD ONLY) 10 ML IV (02:06)
[2025-10-09] MEDS: IOPAMIDOL-370 (76%);100ML BOTTLE 80 ML IV (02:06)
[2025-10-09 02:07] LABS: Microscopic, Urine URINE MICROSCOPIC (MICROSCOPIC)
[2025-10-09] MEDS: 0.9 % SODIUM CHLORIDE 50 ML VIAL IV (02:07)
[2025-10-09 02:09] LABS: Bilirubin,Urine Negative (Negative); Color,Urine YELLOW (Yellow); Glucose,Urine (UA) Negative (Negative); Ketones,Urine TRACE (Negative); Leukocyte Esterase,Urine Negative (Negative); PH,Urine 7.0 (5.0-8.5); Protein,Urine TRACE (Negative); Specific Gravity, Urine 1.025 (1.005-1.030); Urobilinogen,Urine 0.2 EU/dl (0.2)
[2025-10-09 02:16] LABS: Troponin I < 0.01 ng/ml (0.00-0.034)
[2025-10-09 02:32] LABS: Bacteria,Urine 1+ /lpf; Calcium Oxalate Crystals,Urine 1+ /lpf; Mucus,Urine 2+ /lpf; Squamous Epithelial Cell,Urine Occasional #/hpf (0-5)
--- NOTE | 2025-10-09 04:08 | PC.NURSE ---
Dr Arora attempted to call pts Mother and Brother multiple times with no answer.
[2025-10-09] MEDS: LACTATED RINGERS 1000ML 1,000 ML 999 ML IV (04:09)
[2025-10-09] MEDS: ALBUMIN HUMAN 12.5 GM/50 ML BAG IV ×2 (04:10→04:48)
[2025-10-09] MEDS: MORPHINE 2MG/ML SYRINGE 2 MG IV ×2 (04:10→05:11)
--- NOTE | 2025-10-09 04:22 | XR_ITS ---
PROCEDURE INFORMATION: Exam: XR Left Forearm Exam date and time: 10/09/2025 4:29 AM Age: 50 years old Clinical indication: Other: Bruising TECHNIQUE: Imaging protocol: Radiologic exam of the left forearm. Views: 2 views. COMPARISON: No relevant prior studies available. FINDINGS: Bones/joints: No radial or ulnar shaft fracture.. Degenerative changes in the carpal bones and radiocarpal joint Soft tissues: Normal. IMPRESSION: No radial or ulnar shaft fracture..
--- NOTE | 2025-10-09 04:24 | XR_ITS ---
PROCEDURE INFORMATION: Exam: XR Right Forearm Exam date and time: 10/09/2025 4:29 AM Age: 50 years old Clinical indication: Other: Tenderness TECHNIQUE: Imaging protocol: Radiologic exam of the right forearm. Views: 2 views. COMPARISON: US - CA VENOUS DOPPLER UE RT 10/06/2025 11:15 AM FINDINGS: Bones/joints: No fracture of the radius or ulnar shafts.. Degenerative changes in the carpal bones and radiocarpal joint Soft tissues: Normal. IMPRESSION: No fracture of the radius or ulnar shafts..
[2025-10-09] MEDS: METRONIDAZ/SOD CHL 500 MG/100 ML PIGGYBACK 100 MG IV (04:41)
--- NOTE | 2025-10-09 04:45 | PC.NURSE ---
Spoke with transfer center, awaiting a call back at this time
[2025-10-09 04:56] LABS: Troponin I < 0.01 ng/ml (0.00-0.034)
== END 2025-10-09 07:03 | disposition short-term general hospital (02) ==
PROVIDERS: Emergency Provider Emergency Medicine; PCP Nurse Practitioner Family
DX: A41.9 Sepsis, unspecified organism (principal); S72.044A Nondisplaced fracture of base of neck of right femur, initial encounter for closed fracture; R60.1 Generalized edema; K81.9 Cholecystitis, unspecified; E88.09 Other disorders of plasma-protein metabolism, not elsewhere classified; S72.002A Fracture of unspecified part of neck of left femur, initial encounter for closed fracture; L89.152 Pressure ulcer of sacral region, stage 2; X58.XXXA Exposure to other specified factors, initial encounter
CPT/HCPCS: 0223U; 71275; 73090; 74177; 80053; 81001; 83605; 83880; 84484; 85025; 85610; 87040; 93005; 96365; 96366; 96367; 96375; 96376; 99285; J1836; J2270; J7120; P9047; Q9967